=== PATIENT | female | born 1960 | race African-American/Black ===

== ENCOUNTER 2023-03-11 03:57 | Inpatient (IN) | payer OTHER ==
[~2023-03-11] VITALS: Ht 160 cm; Wt 163.3 kg
[2023-03-11] MEDS ORDERED: MORPHINE SULFATE INJ 2 MG/ML DISP.SYRIN ONE ×2 (04:52→08:27)
[2023-03-11] MEDS ORDERED: ONDANSETRON HCL/PF 4 MG/2 ML VIAL ONE (04:52)
[2023-03-11] MEDS ORDERED: FAMOTIDINE/PF INJ 20 MG/2 ML VIAL IV ONE ×2 (04:52→05:00)
[2023-03-11] MEDS ORDERED: ONDANSETRON HCL/PF 4 MG/2 ML VIAL IVP ONE (05:00)
[2023-03-11] MEDS ORDERED: MORPHINE SULFATE INJ 2 MG/ML DISP.SYRIN IV ONE ×2 (05:00→08:30)
[2023-03-11 06:05] LABS: CALCIUM, SERUM 9.4 mg/dL (8.5-10.1); CARBON DIOXIDE 26 mmol/L (21-32); CHLORIDE 103 mmol/L (98-107); CREATININE 1.8 mg/dL (0.6-1.3); GLUCOSE 153 mg/dL (74-106); POTASSIUM 4.8 mmol/L (3.5-5.1); SODIUM SERUM 140 mmol/L (136-145); UREA NITROGEN, BLOOD 20 mg/dL (7-18)
[2023-03-11 06:09] LABS: ALANINE AMINOTRANSFERASE 16 U/L (12-78); ALKALINE PHOSPHATASE 114 U/L (46-116); ASPARTATE AMINOTRANSFERASE 20 U/L (15-37); BILIRUBIN,DIRECT 0.1 mg/dL (0.0-0.2); BILIRUBIN,TOTAL 0.5 mg/dL (0.2-1.0); LIPASE 19 U/L (16-77); TOTAL PROTEIN, SERUM 7.6 g/dL (6.4-8.2)
[2023-03-11 06:12] LABS: BASOPHILS # (AUTO) 0.2 K/uL (0.0-0.2); BASOPHILS % (AUTO) 1.3 % (0.0-2.0); EOSINOPHILS # (AUTO) 0.3 K/uL (0.0-0.7); EOSINOPHILS % (AUTO) 2.4 % (0.0-6.0); HEMATOCRIT 34 % (33-45); HEMOGLOBIN 10.3 g/dL (11.5-14.8); LYMPHOCYTES # (AUTO) 1.9 K/uL (0.8-4.8); LYMPHOCYTES % (AUTO) 15.4 % (20.0-44.0); MEAN CORPUSCULAR HEMOGLOBIN 27 PG (26.0-33.0); MEAN CORPUSCULAR HGB CONC 31 g/dl (31.0-36.0); MEAN CORPUSCULAR VOLUME 89 fL (82-100); MONOCYTES # (AUTO) 1.5 K/uL (0.1-1.30); MONOCYTES % (AUTO) 11.7 % (2.0-12.0); NEUTROPHILS # (AUTO) 8.7 K/uL (1.8-8.9); NEUTROPHILS % (AUTO) 69.2 % (43.0-81.0); PLATELET COUNT (AUTO) 560 K/uL (150-450); RED BLOOD CELL COUNT(AUTO) 3.79 MIL/uL (4.0-5.2); RED CELL DISTRIBUTION WIDTH 15.8 % (11.5-15.0); WHITE BLOOD COUNT (AUTO) 12.6 K/uL (4.3-11.0)
[2023-03-11] MEDS ORDERED: SODI650T PO (09:26)
[2023-03-11] MEDS ORDERED: CARV25TA2 PO (09:26)
[2023-03-11] MEDS ORDERED: IPRA3AMP23 IH (09:26)
[2023-03-11] MEDS ORDERED: NITR0.4T48 SL (09:26)
[2023-03-11] MEDS ORDERED: ALLO100T PO (09:26)
[2023-03-11] MEDS ORDERED: ATOR40TA PO (09:26)
[2023-03-11] MEDS ORDERED: FOLI0.8T2 PO (09:26)
[2023-03-11] MEDS ORDERED: FURO-145 PO (09:26)
[2023-03-11] MEDS ORDERED: DILT-4 PO (09:26)
[2023-03-11] MEDS ORDERED: HYDR-4303 PO (09:26)
[2023-03-11] MEDS ORDERED: DIPH25CA51 PO (09:26)
[2023-03-11] MEDS ORDERED: ACET-868 PO (09:26)
[2023-03-11] MEDS ORDERED: INSU100V7 SQ (09:26)
[2023-03-11] MEDS ORDERED: ASCO-352 PO (09:26)
[2023-03-11] MEDS ORDERED: TRAN650T2 PO (09:26)
[2023-03-11] MEDS ORDERED: INSU100V11 SQ (09:26)
[2023-03-11] MEDS ORDERED: MAGN400O6 PO (09:26)
[2023-03-11] MEDS ORDERED: DULA0.75 SQ (09:26)
[2023-03-11] MEDS ORDERED: ISOS30TA86 PO (09:26)
[2023-03-11] MEDS ORDERED: CLOP75TA15 PO (09:26)
[2023-03-11] MEDS ORDERED: GABA-532 PO (09:26)
[2023-03-11] MEDS ORDERED: BENZ1LOZ12 MM (09:26)
[2023-03-11] MEDS ORDERED: APIX2.5T PO (09:26)
[2023-03-11] MEDS ORDERED: BISA10SU11 RC (09:26)
[2023-03-11] MEDS ORDERED: GUAI5SYR PO (09:26)
[2023-03-11] MEDS ORDERED: HYDR-4076 PO (09:26)
[2023-03-11] MEDS ORDERED: ZINC56.713 TP (09:26)
[2023-03-11] MEDS ORDERED: NA P133E RC (09:26)
[2023-03-11] MEDS ORDERED: FAMO40TA7 PO (09:26)
[2023-03-11] MEDS ORDERED: ARGI1PAC PO (09:26)
[2023-03-11] MEDS ORDERED: MEGE40TA5 PO (09:26)
[2023-03-11] MEDS ORDERED: GENT3.5O4 TOP (09:26)
[2023-03-11] MEDS ORDERED: MAGNESIUM HYDROXIDE 30 ML UDC PO PRN (18:00)
[2023-03-11] MEDS ORDERED: MORPHINE SULFATE INJ 2 MG/ML DISP.SYRIN IV PRN (18:00)
[2023-03-11] MEDS ORDERED: ZOLPIDEM TARTRATE 5 MG TABLET PO PRN (18:00)
[2023-03-11] MEDS ORDERED: Z GUARD REMEDY 4 OZ OINT TP PRN (18:00)
[2023-03-11] MEDS ORDERED: ACETAMINOPHEN 325 MG TABLET PO PRN (18:00)
[2023-03-11] MEDS ORDERED: DEXTROSE 50%-WATER 50 ML DISP.SYRIN IV PRN (18:00)
[2023-03-11] MEDS ORDERED: MAG HYDROX/AL HYDROX/SIMETH 30 ML UDC PO PRN (18:00)
[2023-03-11] MEDS: IV D5/0.45 NACL 1,000 ML IV PRN (18:21)
[2023-03-11] MEDS: HYDROMORPHONE 1 MG/1 ML DISP.SYRIN IV PRN (18:35)
[2023-03-11] MEDS: ONDANSETRON HCL/PF 4 MG/2 ML VIAL IVP PRN (18:40)
[2023-03-11 20:00] VITALS: BP 132/82; TEMP 97.7; O2SAT 92
[2023-03-11] MEDS: BLOOD SUGAR DIAGNOSTIC 1 EACH STRIP IN SCH (22:00)
[2023-03-11] MEDS: MORPHINE SULFATE INJ 2 MG/ML DISP.SYRIN IV PRN (22:44)
[2023-03-12] MEDS: MORPHINE SULFATE INJ 2 MG/ML DISP.SYRIN IV PRN ×5 (03:35→21:34)
[2023-03-12] MEDS: BLOOD SUGAR DIAGNOSTIC 1 EACH STRIP IN SCH ×4 (06:42→21:53)
[2023-03-12 07:00] VITALS: BP 161/83; TEMP 98.1; O2SAT 95
[2023-03-12] MEDS: IV D5/0.45 NACL 1,000 ML IV PRN (08:13)
[2023-03-12] MEDS: PANTOPRAZOLE 40 MG VIAL IV SCH (08:13)
[2023-03-12] MEDS ORDERED: BACITRACIN ZINC OINT (15 GM) 15 GM TUBE TP SCH ×2 (09:00)
[2023-03-12] MEDS: CLOTRIMAZOLE 1% 15 GM TUBE TP SCH ×2 (12:08→17:21)
[2023-03-12 16:00] VITALS: BP 128/60; TEMP 98.8; O2SAT 92
[2023-03-12] MEDS: BACITRACIN ZINC OINT (15 GM) 15 GM TUBE TP SCH (17:22)
[2023-03-12 20:00] VITALS: BP 114/61; TEMP 97.7; O2SAT 94
[2023-03-12] MEDS: INSULIN REGULAR, HUMAN 100 UNIT/ML 3 ML VIAL SQ PRN (21:54)
[2023-03-12 23:30] VITALS: BP 126/74; TEMP 98; O2SAT 98
[2023-03-13] MEDS: IV D5/0.45 NACL 1,000 ML IV PRN ×2 (00:07→15:42)
[2023-03-13] MEDS: MORPHINE SULFATE INJ 2 MG/ML DISP.SYRIN IV PRN ×5 (01:55→23:23)
[2023-03-13 02:00] VITALS: BP 125/70; TEMP 98.5; O2SAT 98
[2023-03-13 05:27] VITALS: BP 123/72; TEMP 98.6; O2SAT 98
[2023-03-13] MEDS: BLOOD SUGAR DIAGNOSTIC 1 EACH STRIP IN SCH ×4 (08:01→22:01)
[2023-03-13] MEDS: PANTOPRAZOLE 40 MG VIAL IV SCH (08:31)
[2023-03-13] MEDS: BACITRACIN ZINC OINT (15 GM) 15 GM TUBE TP SCH ×2 (08:36→16:59)
[2023-03-13] MEDS: CLOTRIMAZOLE 1% 15 GM TUBE TP SCH ×2 (08:37→16:59)
[2023-03-13 11:32] LABS: BASOPHILS # (AUTO) 0.1 K/uL (0.0-0.2); BASOPHILS % (AUTO) 0.7 % (0.0-2.0); EOSINOPHILS # (AUTO) 0.3 K/uL (0.0-0.7); EOSINOPHILS % (AUTO) 2.9 % (0.0-6.0); HEMATOCRIT 30 % (33-45); HEMOGLOBIN 9.1 g/dL (11.5-14.8); LYMPHOCYTES # (AUTO) 2.2 K/uL (0.8-4.8); LYMPHOCYTES % (AUTO) 20.1 % (20.0-44.0); MEAN CORPUSCULAR HEMOGLOBIN 27 PG (26.0-33.0); MEAN CORPUSCULAR HGB CONC 31 g/dl (31.0-36.0); MEAN CORPUSCULAR VOLUME 89 fL (82-100); MONOCYTES # (AUTO) 1.5 K/uL (0.1-1.30); MONOCYTES % (AUTO) 13.9 % (2.0-12.0); NEUTROPHILS # (AUTO) 6.9 K/uL (1.8-8.9); NEUTROPHILS % (AUTO) 62.4 % (43.0-81.0); PLATELET COUNT (AUTO) 469 K/uL (150-450); RED BLOOD CELL COUNT(AUTO) 3.32 MIL/uL (4.0-5.2); RED CELL DISTRIBUTION WIDTH 15.8 % (11.5-15.0); WHITE BLOOD COUNT (AUTO) 11.1 K/uL (4.3-11.0)
[2023-03-13 11:49] LABS: ALBUMIN 2.7 g/dL (3.4-5.0); BILIRUBIN,TOTAL 0.6 mg/dL (0.2-1.0); CALCIUM, SERUM 8.5 mg/dL (8.5-10.1); MAGNESIUM 2.1 mg/dL (1.8-2.4); PHOSPHORUS 3.6 mg/dL (2.5-4.9); TOTAL PROTEIN, SERUM 7.2 g/dL (6.4-8.2)
[2023-03-13 16:14] VITALS: BP_SYST 138; TEMP 98.1; O2SAT 94
[2023-03-13 20:00] VITALS: BP 122/71; TEMP 98.5; O2SAT 95
[2023-03-13] MEDS: INSULIN REGULAR, HUMAN 100 UNIT/ML 3 ML VIAL SQ PRN (22:02)
[2023-03-14] MEDS: MORPHINE SULFATE INJ 2 MG/ML DISP.SYRIN IV PRN ×5 (04:14→21:14)
[2023-03-14] MEDS: IV D5/0.45 NACL 1,000 ML IV PRN ×2 (04:24→22:14)
[2023-03-14] MEDS: BLOOD SUGAR DIAGNOSTIC 1 EACH STRIP IN SCH ×4 (06:50→22:10)
[2023-03-14 08:00] VITALS: BP 150/91; TEMP 97.9; O2SAT 96
[2023-03-14] MEDS: PANTOPRAZOLE 40 MG VIAL IV SCH (08:25)
[2023-03-14] MEDS ORDERED: LEVOFLOXACIN 750 MG /D5W 150ML 750 MG in PREMIX 1 EA IV SCH (10:00)
[2023-03-14] MEDS: BACITRACIN ZINC OINT (15 GM) 15 GM TUBE TP SCH ×2 (11:06→17:09)
[2023-03-14] MEDS: CLOTRIMAZOLE 1% 15 GM TUBE TP SCH ×2 (11:07→17:10)
[2023-03-14] MEDS: ONDANSETRON HCL/PF 4 MG/2 ML VIAL IVP PRN (12:47)
[2023-03-14] MEDS: METRONIDAZOLE 500MG/ NS 100ML 500 MG in PREMIX 1 EA IV SCH ×2 (12:48→21:14)
[2023-03-14 16:00] VITALS: BP 125/83; TEMP 97.7; O2SAT 98
[2023-03-14 20:54] VITALS: BP 99/63; TEMP 97.5; O2SAT 97
[2023-03-15] MEDS: MORPHINE SULFATE INJ 2 MG/ML DISP.SYRIN IV PRN ×6 (01:32→23:19)
[2023-03-15] MEDS: METRONIDAZOLE 500MG/ NS 100ML 500 MG in PREMIX 1 EA IV SCH ×3 (05:06→20:36)
[2023-03-15] MEDS: BLOOD SUGAR DIAGNOSTIC 1 EACH STRIP IN SCH ×4 (06:55→22:07)
[2023-03-15] MEDS: INSULIN REGULAR, HUMAN 100 UNIT/ML 3 ML VIAL SQ PRN ×3 (06:56→22:09)
[2023-03-15 07:06] LABS: PTH, INTACT 33 pg/mL (15-65)
[2023-03-15 07:09] VITALS: BP_SYST 121; BP_SYST 122; BP_SYST 184; BP_DIAS 103; BP_DIAS 67; BP_DIAS 71
[2023-03-15] MEDS: ONDANSETRON HCL/PF 4 MG/2 ML VIAL IVP PRN (07:52)
[2023-03-15 08:02] VITALS: BP 140/69; TEMP 97.5; O2SAT 98
[2023-03-15] MEDS: PANTOPRAZOLE 40 MG VIAL IV SCH (08:31)
[2023-03-15] MEDS: HYDROMORPHONE 1 MG/1 ML DISP.SYRIN IV PRN (08:49)
[2023-03-15] MEDS: BACITRACIN ZINC OINT (15 GM) 15 GM TUBE TP SCH ×2 (09:00→17:00)
[2023-03-15] MEDS: CLOTRIMAZOLE 1% 15 GM TUBE TP SCH ×2 (09:00→17:00)
[2023-03-15] MEDS ORDERED: METOCLOPRAMIDE HCL 10 MG/2 ML VIAL IV PRN (09:30)
[2023-03-15 16:36] VITALS: BP 135/83; TEMP 97.5; O2SAT 98
[2023-03-15] MEDS: IV D5/0.45 NACL 1,000 ML IV PRN (19:20)
[2023-03-15 20:00] VITALS: BP 149/85; TEMP 97.9; O2SAT 98
[2023-03-16] MEDS: METRONIDAZOLE 500MG/ NS 100ML 500 MG in PREMIX 1 EA IV SCH ×3 (05:00→20:55)
[2023-03-16 05:08] LABS: *SPE A/G RATIO 0.7 (0.7-1.7); *SPE ALBUMIN 2.7 g/dL (2.9-4.4); *SPE ALPHA-1-GLOBULIN 0.4 g/dL (0.0-0.4); *SPE ALPHA-2-GLOBULIN 1.1 g/dL (0.4-1.0); *SPE BETA GLOBULIN 1.2 g/dL (0.7-1.3); *SPE GLOBULIN, TOTAL 3.8 g/dL (2.2-3.9); *SPE M-SPIKE Not Observed g/dL (Not Observed); *SPE PROTEIN TOTAL 6.5 g/dL (6.0-8.5); *SPEGAMMA GLOBULIN 1.1 g/dL (0.4-1.8)
[2023-03-16] MEDS: BLOOD SUGAR DIAGNOSTIC 1 EACH STRIP IN SCH ×4 (07:41→21:51)
[2023-03-16] MEDS: INSULIN REGULAR, HUMAN 100 UNIT/ML 3 ML VIAL SQ PRN ×3 (07:42→22:52)
[2023-03-16 08:00] VITALS: BP 149/80; TEMP 97.9; O2SAT 98
[2023-03-16] MEDS: PANTOPRAZOLE 40 MG VIAL IV SCH (09:18)
[2023-03-16] MEDS: BACITRACIN ZINC OINT (15 GM) 15 GM TUBE TP SCH ×3 (09:18→17:38)
[2023-03-16] MEDS: CLOTRIMAZOLE 1% 15 GM TUBE TP SCH ×2 (09:19→17:38)
[2023-03-16] MEDS: MORPHINE SULFATE INJ 2 MG/ML DISP.SYRIN IV PRN ×3 (09:19→20:19)
[2023-03-16] MEDS ORDERED: LEVOFLOXACIN 750 MG /D5W 150ML 750 MG in PREMIX 1 EA IV SCH (10:00)
[2023-03-16] MEDS ORDERED: BISACODYL SUPP (10 MG) 10 MG/SUPP.RECT SUPP.RECT RC PRN (10:00)
[2023-03-16] MEDS: CARVEDILOL 12.5 MG TABLET PO SCH ×3 (10:02→20:55)
[2023-03-16] MEDS ORDERED: ALBUTEROL FS 2.5 MG/0.5 ML VIAL.NEB NEB PRN (10:30)
[2023-03-16] MEDS ORDERED: IPRATROPIUM NEB FS 0.5 MG/2.5 ML AMPUL.NEB IH PRN (10:30)
[2023-03-16] MEDS ORDERED: IPRATROPIUM NEB FS 0.5 MG/2.5 ML AMPUL.NEB NEB PRN (10:30)
[2023-03-16 11:22] LABS: BASOPHILS # (AUTO) 0.1 K/uL (0.0-0.2); BASOPHILS % (AUTO) 1.1 % (0.0-2.0); EOSINOPHILS # (AUTO) 0.2 K/uL (0.0-0.7); EOSINOPHILS % (AUTO) 1.5 % (0.0-6.0); HEMATOCRIT 29 % (33-45); HEMOGLOBIN 9.2 g/dL (11.5-14.8); LYMPHOCYTES # (AUTO) 2.1 K/uL (0.8-4.8); LYMPHOCYTES % (AUTO) 18.5 % (20.0-44.0); MEAN CORPUSCULAR HEMOGLOBIN 28 PG (26.0-33.0); MEAN CORPUSCULAR HGB CONC 32 g/dl (31.0-36.0); MEAN CORPUSCULAR VOLUME 88 fL (82-100); MONOCYTES # (AUTO) 1.5 K/uL (0.1-1.30); MONOCYTES % (AUTO) 13.1 % (2.0-12.0); NEUTROPHILS # (AUTO) 7.6 K/uL (1.8-8.9); NEUTROPHILS % (AUTO) 65.8 % (43.0-81.0); PLATELET COUNT (AUTO) 567 K/uL (150-450); RED BLOOD CELL COUNT(AUTO) 3.31 MIL/uL (4.0-5.2); RED CELL DISTRIBUTION WIDTH 15.5 % (11.5-15.0); WHITE BLOOD COUNT (AUTO) 11.5 K/uL (4.3-11.0)
[2023-03-16 11:23] LABS: CREATININE 2.4 mg/dL (0.6-1.3); MAGNESIUM 2.3 mg/dL (1.8-2.4); PHOSPHORUS 3.5 mg/dL (2.5-4.9); POTASSIUM 4.2 mmol/L (3.5-5.1)
[2023-03-16 11:25] LABS: ALBUMIN 2.8 g/dL (3.4-5.0); BILIRUBIN,DIRECT 0.3 mg/dL (0.0-0.2); BILIRUBIN,TOTAL 0.7 mg/dL (0.2-1.0); TOTAL PROTEIN, SERUM 7.2 g/dL (6.4-8.2)
[2023-03-16] MEDS: GABAPENTIN 100 MG CAPSULE PO SCH ×3 (12:45→17:00)
[2023-03-16] MEDS: hydrALAZINE HCL 25 MG TABLET PO SCH ×3 (13:00→20:56)
[2023-03-16 16:00] VITALS: BP 141/81; TEMP 98.1; O2SAT 100
[2023-03-16] MEDS ORDERED: TRANEXAMIC ACID 650 MG PO SCH (17:00)
[2023-03-16] MEDS: APIXABAN 2.5 MG TABLET PO SCH (17:00)
[2023-03-16 20:00] VITALS: BP 149/81; TEMP 98; O2SAT 98
[2023-03-16] MEDS: ONDANSETRON HCL/PF 4 MG/2 ML VIAL IVP PRN (20:17)
[2023-03-16] MEDS ORDERED: ATORVASTATIN 40 MG TABLET PO SCH (22:00)
[2023-03-16] MEDS: IV D5/0.45 NACL 1,000 ML IV PRN (23:53)
[2023-03-17] MEDS: MORPHINE SULFATE INJ 2 MG/ML DISP.SYRIN IV PRN ×3 (04:34→13:36)
[2023-03-17] MEDS: METRONIDAZOLE 500MG/ NS 100ML 500 MG in PREMIX 1 EA IV SCH ×2 (04:56→13:23)
[2023-03-17] MEDS: BLOOD SUGAR DIAGNOSTIC 1 EACH STRIP IN SCH ×3 (06:12→17:02)
[2023-03-17] MEDS: INSULIN REGULAR, HUMAN 100 UNIT/ML 3 ML VIAL SQ PRN (06:14)
[2023-03-17 08:00] VITALS: BP 151/98; TEMP 97.6; O2SAT 96
[2023-03-17 09:00] VITALS: BP 151/98
[2023-03-17] MEDS: APIXABAN 2.5 MG TABLET PO SCH ×2 (09:00→17:00)
[2023-03-17] MEDS: CARVEDILOL 12.5 MG TABLET PO SCH ×2 (09:00→09:11)
[2023-03-17] MEDS: ISOSORBIDE MONONITRATE (30MG) 30 MG TAB.SR.24H PO SCH ×2 (09:00→09:11)
[2023-03-17] MEDS: FUROSEMIDE 20 MG TABLET PO SCH ×2 (09:00→09:09)
[2023-03-17] MEDS: ALLOPURINOL 100 MG TABLET PO SCH ×2 (09:00→09:10)
[2023-03-17] MEDS: GABAPENTIN 100 MG CAPSULE PO SCH ×4 (09:00→17:00)
[2023-03-17] MEDS: ASCORBIC ACID 500 MG TABLET PO SCH ×2 (09:00→09:10)
[2023-03-17] MEDS: CLOTRIMAZOLE 1% 15 GM TUBE TP SCH ×2 (09:00→17:00)
[2023-03-17] MEDS: BACITRACIN ZINC OINT (15 GM) 15 GM TUBE TP SCH ×2 (09:00→17:00)
[2023-03-17] MEDS: DILTIAZEM HCL CD 240 MG PO SCH ×2 (09:00→09:12)
[2023-03-17] MEDS: hydrALAZINE HCL 25 MG TABLET PO SCH ×4 (09:00→17:00)
[2023-03-17] MEDS: VIT B CMPLX 3/FA/VIT C/BIOTIN 1 TAB TABLET PO SCH ×2 (09:00→09:09)
[2023-03-17] MEDS: CLOPIDOGREL BISULFATE 75 MG TABLET PO SCH ×2 (09:00→09:10)
[2023-03-17] MEDS: PANTOPRAZOLE 40 MG TABLET.DR PO SCH ×2 (09:00→09:10)
[2023-03-17] MEDS ORDERED: METR500T PO (10:32)
[2023-03-17 11:42] LABS: BASOPHILS # (AUTO) 0.1 K/uL (0.0-0.2); BASOPHILS % (AUTO) 0.7 % (0.0-2.0); EOSINOPHILS # (AUTO) 0.2 K/uL (0.0-0.7); EOSINOPHILS % (AUTO) 1.6 % (0.0-6.0); HEMATOCRIT 34 % (33-45); HEMOGLOBIN 10.3 g/dL (11.5-14.8); LYMPHOCYTES # (AUTO) 2.4 K/uL (0.8-4.8); LYMPHOCYTES % (AUTO) 18.9 % (20.0-44.0); MEAN CORPUSCULAR HEMOGLOBIN 28 PG (26.0-33.0); MEAN CORPUSCULAR HGB CONC 31 g/dl (31.0-36.0); MEAN CORPUSCULAR VOLUME 91 fL (82-100); MONOCYTES # (AUTO) 2.1 K/uL (0.1-1.30); MONOCYTES % (AUTO) 16.3 % (2.0-12.0); NEUTROPHILS # (AUTO) 7.9 K/uL (1.8-8.9); NEUTROPHILS % (AUTO) 62.5 % (43.0-81.0); PLATELET COUNT (AUTO) 588 K/uL (150-450); RED BLOOD CELL COUNT(AUTO) 3.73 MIL/uL (4.0-5.2); RED CELL DISTRIBUTION WIDTH 16.1 % (11.5-15.0); WHITE BLOOD COUNT (AUTO) 12.7 K/uL (4.3-11.0)
[2023-03-17 11:55] LABS: ALBUMIN 2.8 g/dL (3.4-5.0); BILIRUBIN,TOTAL 0.6 mg/dL (0.2-1.0); CALCIUM, SERUM 8.7 mg/dL (8.5-10.1); CREATININE 2.6 mg/dL (0.6-1.3); MAGNESIUM 2.5 mg/dL (1.8-2.4); PHOSPHORUS 3.3 mg/dL (2.5-4.9); POTASSIUM 4.2 mmol/L (3.5-5.1); TOTAL PROTEIN, SERUM 7.4 g/dL (6.4-8.2)
[2023-03-17 13:05] LABS: EOSINOPHILS % (MANUAL) 1 % (0-4); LYMPHOCYTES % (MANUAL) 23 % (16-48); MONOCYTES % (MANUAL) 15 % (0-11.0); NEUTROPHILS % (MANUAL) 61 (42-76); PLATELET ESTIMATE INCREASED
[2023-03-17] MEDS: HYDROMORPHONE 1 MG/1 ML DISP.SYRIN IV PRN (16:52)
== END 2023-03-17 18:15 | DRG 48 ==
LOC: ER 04:14 → MED 11:57
PROVIDERS: ADMIT Nurse Practitioner Acute Care; ATTEND Nurse Practitioner Family
PROC: 05HD33Z Insertion of Infusion Device into Right Cephalic Vein, Percutaneous Approach (ICD-10-PCS; principal; 2023-03-12)
DX: E11.43 Type 2 diabetes mellitus with diabetic autonomic (poly)neuropathy (principal); N17.0 Acute kidney failure with tubular necrosis; K80.00 Calculus of gallbladder with acute cholecystitis without obstruction; R18.8 Other ascites; Z68.44 Body mass index [BMI] 60.0-69.9, adult; S81.802A Unspecified open wound, left lower leg, initial encounter; J90 Pleural effusion, not elsewhere classified; E11.22 Type 2 diabetes mellitus with diabetic chronic kidney disease; D64.9 Anemia, unspecified; E11.51 Type 2 diabetes mellitus with diabetic peripheral angiopathy without gangrene; E11.42 Type 2 diabetes mellitus with diabetic polyneuropathy; D75.839 Thrombocytosis, unspecified; I48.91 Unspecified atrial fibrillation; K31.84 Gastroparesis; N18.9 Chronic kidney disease, unspecified; E66.01 Morbid (severe) obesity due to excess calories; N20.0 Calculus of kidney; Z20.822 Contact with and (suspected) exposure to COVID-19; M10.9 Gout, unspecified; Z87.19 Personal history of other diseases of the digestive system; F43.10 Post-traumatic stress disorder, unspecified; Z96.0 Presence of urogenital implants; Z88.0 Allergy status to penicillin; Z88.6 Allergy status to analgesic agent; Z79.899 Other long term (current) drug therapy; Z88.5 Allergy status to narcotic agent; Z88.8 Allergy status to other drugs, medicaments and biological substances; M89.8X9 Other specified disorders of bone, unspecified site; K59.00 Constipation, unspecified; Z79.02 Long term (current) use of antithrombotics/antiplatelets; Z79.51 Long term (current) use of inhaled steroids; Z79.4 Long term (current) use of insulin; Z79.01 Long term (current) use of anticoagulants; Z79.85 Long-term (current) use of injectable non-insulin antidiabetic drugs; I87.2 Venous insufficiency (chronic) (peripheral); I89.0 Lymphedema, not elsewhere classified; I51.7 Cardiomegaly; K75.81 Nonalcoholic steatohepatitis (NASH); X58.XXXA Exposure to other specified factors, initial encounter; Y92.9 Unspecified place or not applicable; K57.30 Diverticulosis of large intestine without perforation or abscess without bleeding
CPT/HCPCS: 36415; 71045-TC; 76705-TC; 76770-TC; 80048-TC; 80053-TC; 80076-TC; 82550-TC; 82962-TC; 83690-TC; 83735-TC; 83880; 83970; 84100-TC; 84155; 84165; 84484-TC; 85025-TC; A4216; A4223; A6253; C9113; G0378; J1170; J1815; J1956; J2270; J2405; J3490; J7030; J7042

== ENCOUNTER 2023-03-27 13:05 | Inpatient (IN) | payer OTHER ==
[~2023-03-27] VITALS: Ht 162.6 cm; Wt 146.5 kg
[~2023-03-27 13:05] MED LIST: ACET-868 PO; ALLO100T PO; APIX2.5T PO; ARGI1PAC PO; ASCO-352 PO; ATOR40TA PO; BENZ1LOZ12 MM; BISA10SU11 RC; CARV25TA2 PO; CLOP75TA15 PO; DILT-4 PO; DIPH25CA51 PO; DULA0.75 SQ; FAMO40TA7 PO; FOLI0.8T2 PO; FURO-145 PO; GABA-532 PO; GENT3.5O4 TOP; GUAI5SYR PO; HYDR-4076 PO; HYDR-4303 PO; INSU100V11 SQ; INSU100V7 SQ; IPRA3AMP23 IH; ISOS30TA86 PO; MAGN400O6 PO; MEGE40TA5 PO; METR500T PO; NA P133E RC; NITR0.4T48 SL; SODI650T PO; TRAN650T2 PO; ZINC56.713 TP
[2023-03-27] MEDS ORDERED: METO-295 PO (13:50)
[2023-03-27] MEDS ORDERED: BISA5TAB10 PO (13:50)
[2023-03-27] MEDS ORDERED: DOCU-141 PO (13:50)
[2023-03-27] MEDS ORDERED: PANT40TA2 PO (13:50)
[2023-03-27] MEDS ORDERED: LEVO500T90 PO (13:50)
[2023-03-27] MEDS ORDERED: POLY17PO4 PO (13:50)
[2023-03-27] MEDS ORDERED: GLUC1KIT IM (13:50)
[2023-03-27 14:17] LABS: BASOPHILS # (AUTO) 0.1 K/uL (0.0-0.2); BASOPHILS % (AUTO) 0.8 % (0.0-2.0); EOSINOPHILS # (AUTO) 0.1 K/uL (0.0-0.7); EOSINOPHILS % (AUTO) 0.7 % (0.0-6.0); HEMATOCRIT 32 % (33-45); HEMOGLOBIN 9.9 g/dL (11.5-14.8); LYMPHOCYTES # (AUTO) 1.8 K/uL (0.8-4.8); LYMPHOCYTES % (AUTO) 16.2 % (20.0-44.0); MEAN CORPUSCULAR HEMOGLOBIN 27 PG (26.0-33.0); MEAN CORPUSCULAR HGB CONC 31 g/dl (31.0-36.0); MEAN CORPUSCULAR VOLUME 87 fL (82-100); MONOCYTES % (AUTO) 18.1 % (2.0-12.0); NEUTROPHILS # (AUTO) 7.2 K/uL (1.8-8.9); NEUTROPHILS % (AUTO) 64.2 % (43.0-81.0); PLATELET COUNT (AUTO) 614 K/uL (150-450); RED BLOOD CELL COUNT(AUTO) 3.68 MIL/uL (4.0-5.2); RED CELL DISTRIBUTION WIDTH 16.5 % (11.5-15.0); WHITE BLOOD COUNT (AUTO) 11.2 K/uL (4.3-11.0)
[2023-03-27 14:31] LABS: ALANINE AMINOTRANSFERASE 17 U/L (12-78); ALBUMIN 2.3 g/dL (3.4-5.0); ALKALINE PHOSPHATASE 247 U/L (46-116); ASPARTATE AMINOTRANSFERASE 24 U/L (15-37); BILIRUBIN,DIRECT 0.3 mg/dL (0.0-0.2); BILIRUBIN,TOTAL 0.5 mg/dL (0.2-1.0); CALCIUM, SERUM 8.8 mg/dL (8.5-10.1); CARBON DIOXIDE 20 mmol/L (21-32); CHLORIDE 99 mmol/L (98-107); CREATININE 4.5 mg/dL (0.6-1.3); GLUCOSE 162 mg/dL (74-106); LIPASE 45 U/L (16-77); POTASSIUM 5.4 mmol/L (3.5-5.1); SODIUM SERUM 130 mmol/L (136-145); TOTAL PROTEIN, SERUM 7.7 g/dL (6.4-8.2); UREA NITROGEN, BLOOD 66 mg/dL (7-18)
[2023-03-27 14:48] LABS: APPEARANCE,URINE BLOODY (CLEAR); COLOR,URINE RED (YELLOW)
[2023-03-27] MEDS ORDERED: MORPHINE SULFATE INJ 2 MG/ML DISP.SYRIN IV ONE (15:00)
[2023-03-27] MEDS ORDERED: ONDANSETRON HCL/PF 4 MG/2 ML VIAL IVP ONE (15:00)
[2023-03-27] MEDS ORDERED: ONDANSETRON HCL/PF 4 MG/2 ML VIAL ONE ×2 (15:06→18:47)
[2023-03-27] MEDS ORDERED: MORPHINE SULFATE INJ 4 MG/ML DISP.SYRIN ONE (15:07)
[2023-03-27 15:46] LABS: BACTERIA,URINE 3+ /HPF (None Seen); RBC,URINE TOO NUMEROUS TO COUN /HPF (0-2); SQUAMOUS EPITHELIAL CELL,UR 0-2 /HPF (None Seen); WBC,URINE TOO NUMEROUS TO COUN /HPF (0-3)
[2023-03-27] MEDS ORDERED: CEFTRIAXONE 1GM BAG (ER ONLY) 1 GM/50 ML PIGGYBACK IV ONE (16:00)
[2023-03-27] MEDS ORDERED: IV NS 0.9% 1,000 ML BAG IV ONE (16:00)
[2023-03-27 16:05] LABS: ANISOCYTOSIS 1+; EOSINOPHILS % (MANUAL) 2 % (0-4); LYMPHOCYTES % (MANUAL) 19 % (16-48); MONOCYTES % (MANUAL) 9 % (0-11.0); NEUTROPHILS % (MANUAL) 70 (42-76); PLATELET ESTIMATE INCREASED
[2023-03-27 16:06] LABS: STOMATOCYTES FEW; TEAR DROP CELLS FEW
[2023-03-27] MEDS ORDERED: CEFTRIAXONE 1GM BAG (ER ONLY) 50 ML IV ONE (16:54)
[2023-03-27] MEDS ORDERED: ONDANSETRON HCL/PF - ER 4 MG/2 ML VIAL IV ONE (18:00)
[2023-03-27] MEDS ORDERED: DEXTROSE 50%-WATER 50 ML DISP.SYRIN IV PRN (19:00)
[2023-03-27] MEDS ORDERED: MAGNESIUM HYDROXIDE 30 ML UDC PO PRN (19:00)
[2023-03-27] MEDS ORDERED: hydrALAZINE HCL IV 20 MG VIAL IV PRN (19:00)
[2023-03-27] MEDS ORDERED: diphenhydrAMINE HCL 25 MG CAPSULE PO PRN (19:00)
[2023-03-27] MEDS ORDERED: ALBUTEROL FS 2.5 MG/0.5 ML VIAL.NEB NEB PRN (19:00)
[2023-03-27 20:00] VITALS: BP 127/98; TEMP 99.3; O2SAT 99
[2023-03-27] MEDS: CEFEPIME 1 GM in IV D5W 50 ML IV SCH (20:36)
[2023-03-27] MEDS: MORPHINE SULFATE INJ 2 MG/ML DISP.SYRIN IV PRN (21:09)
[2023-03-27] MEDS: hydrALAZINE HCL 25 MG TABLET PO SCH (22:26)
[2023-03-27] MEDS: ATORVASTATIN 40 MG TABLET PO SCH (22:26)
[2023-03-27] MEDS: BLOOD SUGAR DIAGNOSTIC 1 EACH STRIP VI SCH (22:28)
[2023-03-27] MEDS: *INSULIN REGULAR(HUMULIN R)HUM 100 UNIT/ML VIAL SQ PRN (22:58)
[2023-03-28] VITALS (12 sets, daily range): BP systolic 107–129; BP diastolic 75–92; TEMP 98.1–99.5; O2SAT 94–99
[2023-03-28] MEDS ORDERED: IPRATROPIUM/ALBUTEROL INHALER IH SCH
[2023-03-28] MEDS: MORPHINE SULFATE INJ 2 MG/ML DISP.SYRIN IV PRN ×5 (03:03→20:45)
[2023-03-28] MEDS: PANTOPRAZOLE 40 MG TABLET.DR PO SCH (07:30)
[2023-03-28] MEDS: SODIUM BICARBONATE 650 MG TABLET PO SCH ×4 (08:00→17:25)
[2023-03-28] MEDS: BLOOD SUGAR DIAGNOSTIC 1 EACH STRIP VI SCH ×4 (08:09→21:15)
[2023-03-28] MEDS: INSULIN REGULAR, HUMAN 100 UNIT/ML 3 ML VIAL SQ PRN ×3 (08:12→18:12)
[2023-03-28] MEDS: ALBUTEROL FS 2.5 MG/0.5 ML VIAL.NEB NEB SCH ×3 (08:30→19:51)
[2023-03-28] MEDS: IPRATROPIUM NEB FS 0.5 MG/2.5 ML AMPUL.NEB NEB SCH ×3 (08:30→19:50)
[2023-03-28] MEDS: APIXABAN 2.5 MG TABLET PO SCH ×2 (09:00→17:00)
[2023-03-28] MEDS: CARVEDILOL 12.5 MG TABLET PO SCH ×2 (09:00→17:25)
[2023-03-28] MEDS: DOCUSATE SODIUM 100 MG CAPSULE PO SCH ×2 (09:00→17:24)
[2023-03-28] MEDS: GABAPENTIN 100 MG CAPSULE PO SCH ×3 (09:00→17:24)
[2023-03-28] MEDS: FAMOTIDINE (20 MG) 20 MG TABLET PO SCH (09:00)
[2023-03-28] MEDS: ASCORBIC ACID 500 MG TABLET PO SCH (09:00)
[2023-03-28] MEDS: ALLOPURINOL 100 MG TABLET PO SCH (09:00)
[2023-03-28] MEDS ORDERED: FUROSEMIDE 20 MG TABLET PO SCH (09:00)
[2023-03-28] MEDS: DILTIAZEM HCL CD 240 MG PO SCH (09:00)
[2023-03-28] MEDS: hydrALAZINE HCL 25 MG TABLET PO SCH ×5 (09:00→20:46)
[2023-03-28] MEDS ORDERED: FAMOTIDINE 40 MG TABLET PO SCH (09:00)
[2023-03-28 13:45] LABS: APPEARANCE,URINE TURBID (CLEAR); BILIRUBIN,URINE 2+ (NEGATIVE); BLOOD, URINE 3+ Ery/uL (NEGATIVE); COLOR,URINE AMBER (YELLOW); KETONES,URINE TRACE mg/dL (NEGATIVE); LEUKOCYTE ESTERASE ,URINE 2+ (NEGATIVE); NITRITE, URINE POSITIVE (NEGATIVE); PROTEIN,URINE 3+ mg/dl (NEGATIVE); UGLUCOSE NEGATIVE (NEGATIVE)
[2023-03-28 14:01] LABS: RBC,URINE TOO NUMEROUS TO COUN /HPF (0-2); WBC,URINE TOO NUMEROUS TO COUN /HPF (0-3)
[2023-03-28 14:02] LABS: ADD URINE CULTURE YES; BACTERIA,URINE Moderate /HPF (None Seen); SQUAMOUS EPITHELIAL CELL,UR Moderate /HPF (None Seen)
[2023-03-28 14:05] LABS: CREATININE, URINE 163.7 MG/DL (30.0-125.0); URINE TOTAL PROTEIN 344.1 mg/dL (0-11.9)
[2023-03-28 15:46] LABS: EOSINOPHIL,URINE None Seen
[2023-03-28] MEDS: CEFEPIME 1 GM in IV D5W 50 ML IV SCH (20:45)
[2023-03-28] MEDS: ATORVASTATIN 40 MG TABLET PO SCH (20:46)
[2023-03-29] VITALS (9 sets, daily range): BP systolic 107–127; BP diastolic 57–86; TEMP 97.3–99.2; O2SAT 94–100
[2023-03-29] MEDS: IPRATROPIUM NEB FS 0.5 MG/2.5 ML AMPUL.NEB NEB SCH ×4 (01:10→19:37)
[2023-03-29] MEDS: ALBUTEROL FS 2.5 MG/0.5 ML VIAL.NEB NEB SCH ×4 (01:10→19:37)
[2023-03-29] MEDS: MORPHINE SULFATE INJ 2 MG/ML DISP.SYRIN IV PRN ×4 (04:15→18:58)
[2023-03-29 07:51] LABS: BASOPHILS % (AUTO) 0.4 % (0.0-2.0); EOSINOPHILS # (AUTO) 0.2 K/uL (0.0-0.7); EOSINOPHILS % (AUTO) 1.9 % (0.0-6.0); HEMATOCRIT 29 % (33-45); LYMPHOCYTES # (AUTO) 2.3 K/uL (0.8-4.8); LYMPHOCYTES % (AUTO) 19.9 % (20.0-44.0); MEAN CORPUSCULAR HEMOGLOBIN 27 PG (26.0-33.0); MEAN CORPUSCULAR HGB CONC 31 g/dl (31.0-36.0); MEAN CORPUSCULAR VOLUME 87 fL (82-100); MONOCYTES # (AUTO) 2.7 K/uL (0.1-1.30); MONOCYTES % (AUTO) 23.1 % (2.0-12.0); NEUTROPHILS # (AUTO) 6.4 K/uL (1.8-8.9); NEUTROPHILS % (AUTO) 54.7 % (43.0-81.0); PLATELET COUNT (AUTO) 523 K/uL (150-450); RED BLOOD CELL COUNT(AUTO) 3.34 MIL/uL (4.0-5.2); WHITE BLOOD COUNT (AUTO) 11.8 K/uL (4.3-11.0)
[2023-03-29 08:08] LABS: BILIRUBIN,TOTAL 0.4 mg/dL (0.2-1.0); CALCIUM, SERUM 8.5 mg/dL (8.5-10.1); CREATININE 5.4 mg/dL (0.6-1.3); MAGNESIUM 2.8 mg/dL (1.8-2.4); POTASSIUM 5.7 mmol/L (3.5-5.1); TOTAL PROTEIN, SERUM 7.2 g/dL (6.4-8.2)
[2023-03-29 08:18] LABS: INR 1.24 (0.91-1.10)
[2023-03-29] MEDS: APIXABAN 2.5 MG TABLET PO SCH ×2 (08:29→16:28)
[2023-03-29] MEDS: GABAPENTIN 100 MG CAPSULE PO SCH ×3 (08:30→16:32)
[2023-03-29] MEDS: DOCUSATE SODIUM 100 MG CAPSULE PO SCH ×2 (08:30→16:28)
[2023-03-29] MEDS: ALLOPURINOL 100 MG TABLET PO SCH (08:30)
[2023-03-29] MEDS: FAMOTIDINE (20 MG) 20 MG TABLET PO SCH (08:31)
[2023-03-29] MEDS: PANTOPRAZOLE 40 MG TABLET.DR PO SCH (08:31)
[2023-03-29] MEDS: hydrALAZINE HCL 25 MG TABLET PO SCH ×4 (08:32→21:36)
[2023-03-29] MEDS: CARVEDILOL 12.5 MG TABLET PO SCH ×2 (08:32→16:33)
[2023-03-29] MEDS: SODIUM BICARBONATE 650 MG TABLET PO SCH ×3 (08:35→17:23)
[2023-03-29] MEDS: DILTIAZEM HCL CD 240 MG PO SCH (08:35)
[2023-03-29] MEDS: ASCORBIC ACID 500 MG TABLET PO SCH (08:37)
[2023-03-29] MEDS: BLOOD SUGAR DIAGNOSTIC 1 EACH STRIP VI SCH ×4 (09:22→21:37)
[2023-03-29] MEDS: INSULIN REGULAR, HUMAN 100 UNIT/ML 3 ML VIAL SQ PRN ×3 (09:22→17:22)
[2023-03-29] MEDS: CEFEPIME 1 GM in IV D5W 50 ML IV SCH (20:26)
[2023-03-29] MEDS: ATORVASTATIN 40 MG TABLET PO SCH (21:36)
[2023-03-29] MEDS: *INSULIN REGULAR(HUMULIN R)HUM 100 UNIT/ML VIAL SQ PRN (21:37)
[2023-03-29 23:34] LABS: CALCIUM, SERUM 8.4 mg/dL (8.5-10.1); CREATININE 5.9 mg/dL (0.6-1.3); POTASSIUM 5.5 mmol/L (3.5-5.1)
[2023-03-30] VITALS: BP 108/88; TEMP 97.9; O2SAT 99
[2023-03-30] MEDS: MORPHINE SULFATE INJ 2 MG/ML DISP.SYRIN IV PRN ×4 (01:22→20:16)
[2023-03-30] MEDS: IPRATROPIUM NEB FS 0.5 MG/2.5 ML AMPUL.NEB NEB SCH ×4 (01:30→19:30)
[2023-03-30] MEDS: ALBUTEROL FS 2.5 MG/0.5 ML VIAL.NEB NEB SCH ×4 (01:30→19:30)
[2023-03-30 04:00] VITALS: BP 120/82; TEMP 97.8; O2SAT 99
[2023-03-30 06:07] LABS: PTH, INTACT 53 pg/mL (15-65)
[2023-03-30] MEDS ORDERED: ALBUMIN 25% 100 ML IV ONE (06:22)
[2023-03-30] MEDS: ALBUMIN 25% 25 GM in PREMIX 1 EA IV SCH ×3 (06:31→18:42)
[2023-03-30] MEDS: BLOOD SUGAR DIAGNOSTIC 1 EACH STRIP VI SCH ×4 (07:30→22:00)
[2023-03-30] MEDS: PANTOPRAZOLE 40 MG TABLET.DR PO SCH (07:30)
[2023-03-30 08:00] VITALS: BP 128/88; TEMP 97.8; O2SAT 99
[2023-03-30] MEDS: SODIUM BICARBONATE 650 MG TABLET PO SCH ×3 (08:00→17:50)
[2023-03-30 08:07] LABS: *SPE A/G RATIO 0.6 (0.7-1.7); *SPE ALBUMIN 2.2 g/dL (2.9-4.4); *SPE ALPHA-1-GLOBULIN 0.4 g/dL (0.0-0.4); *SPE ALPHA-2-GLOBULIN 1.1 g/dL (0.4-1.0); *SPE BETA GLOBULIN 1.1 g/dL (0.7-1.3); *SPE M-SPIKE Not Observed g/dL (Not Observed); *SPE PROTEIN TOTAL 6.2 g/dL (6.0-8.5); *SPEGAMMA GLOBULIN 1.3 g/dL (0.4-1.8)
[2023-03-30] MEDS: DOCUSATE SODIUM 100 MG CAPSULE PO SCH ×2 (09:00→17:49)
[2023-03-30] MEDS: CARVEDILOL 12.5 MG TABLET PO SCH ×2 (09:00→17:51)
[2023-03-30] MEDS: ASCORBIC ACID 500 MG TABLET PO SCH (09:00)
[2023-03-30] MEDS: GABAPENTIN 100 MG CAPSULE PO SCH ×3 (09:00→17:50)
[2023-03-30] MEDS: APIXABAN 2.5 MG TABLET PO SCH ×2 (09:00→17:00)
[2023-03-30] MEDS: FAMOTIDINE (20 MG) 20 MG TABLET PO SCH (09:00)
[2023-03-30] MEDS: DILTIAZEM HCL CD 240 MG PO SCH (09:00)
[2023-03-30] MEDS: hydrALAZINE HCL 25 MG TABLET PO SCH ×4 (09:00→21:00)
[2023-03-30] MEDS: ALLOPURINOL 100 MG TABLET PO SCH (09:00)
[2023-03-30] MEDS: INSULIN REGULAR, HUMAN 100 UNIT/ML 3 ML VIAL SQ PRN ×3 (09:03→23:54)
[2023-03-30] MEDS: CLOTRIMAZOLE 1% 15 GM TUBE TP SCH ×2 (09:40→17:53)
[2023-03-30 12:00] VITALS: BP 133/56; TEMP 98; O2SAT 99
[2023-03-30 16:00] VITALS: BP 133/64; TEMP 98.8; O2SAT 100
[2023-03-30 16:19] LABS: PROTEIN, BODY FLUID 5.1 G/DL
[2023-03-30 17:16] LABS: APPEARANCE,SPUN,BODY FLUID CLEAR (CLEAR)
[2023-03-30 17:17] LABS: TOTAL VOLUME,BODY FLUID 4550 mL; WBC, BODY FLUID 306 /cu. mm. (0-200)
[2023-03-30 18:26] LABS: MACROPHAGES, BODY FLUID 20; MONOCYTES,BODY FLUID 32 %; POLYNUCLEAR, BODY FLUID 8 % (0-25)
[2023-03-30 18:34] LABS: BASOPHILS % (AUTO) 0.3 % (0.0-2.0); EOSINOPHILS # (AUTO) 0.3 K/uL (0.0-0.7); EOSINOPHILS % (AUTO) 2.4 % (0.0-6.0); HEMATOCRIT 26 % (33-45); LYMPHOCYTES # (AUTO) 1.7 K/uL (0.8-4.8); MEAN CORPUSCULAR HEMOGLOBIN 27 PG (26.0-33.0); MEAN CORPUSCULAR HGB CONC 31 g/dl (31.0-36.0); MEAN CORPUSCULAR VOLUME 87 fL (82-100); MONOCYTES # (AUTO) 1.9 K/uL (0.1-1.30); MONOCYTES % (AUTO) 15.2 % (2.0-12.0); NEUTROPHILS # (AUTO) 8.8 K/uL (1.8-8.9); NEUTROPHILS % (AUTO) 69.1 % (43.0-81.0); PLATELET COUNT (AUTO) 440 K/uL (150-450); RED BLOOD CELL COUNT(AUTO) 3.01 MIL/uL (4.0-5.2); RED CELL DISTRIBUTION WIDTH 16.2 % (11.5-15.0); WHITE BLOOD COUNT (AUTO) 12.8 K/uL (4.3-11.0)
[2023-03-30 20:00] VITALS: BP 102/67; TEMP 97.7; O2SAT 100
[2023-03-30] MEDS: CEFEPIME 1 GM in IV D5W 50 ML IV SCH (20:17)
[2023-03-30] MEDS: ONDANSETRON HCL/PF 4 MG/2 ML VIAL IVP PRN (20:32)
[2023-03-30] MEDS: ATORVASTATIN 40 MG TABLET PO SCH ×2 (21:54→22:34)
[2023-03-31] VITALS: BP 118/60; TEMP 97
[2023-03-31] MEDS: ONDANSETRON HCL/PF 4 MG/2 ML VIAL IVP PRN ×3 (00:34→18:09)
[2023-03-31] MEDS: ALBUMIN 25% 25 GM in PREMIX 1 EA IV SCH ×2 (00:37→00:41)
[2023-03-31] MEDS: IPRATROPIUM NEB FS 0.5 MG/2.5 ML AMPUL.NEB NEB SCH ×5 (01:30→20:41)
[2023-03-31] MEDS: ALBUTEROL FS 2.5 MG/0.5 ML VIAL.NEB NEB SCH ×5 (01:30→20:41)
[2023-03-31 04:00] VITALS: BP 115/57; TEMP 98.1; O2SAT 100
[2023-03-31] MEDS: MORPHINE SULFATE INJ 2 MG/ML DISP.SYRIN IV PRN ×4 (06:04→20:33)
[2023-03-31] MEDS: BLOOD SUGAR DIAGNOSTIC 1 EACH STRIP VI SCH ×4 (07:30→22:18)
[2023-03-31 07:39] LABS: BASOPHILS % (AUTO) 0.2 % (0.0-2.0); EOSINOPHILS # (AUTO) 0.4 K/uL (0.0-0.7); EOSINOPHILS % (AUTO) 2.8 % (0.0-6.0); HEMATOCRIT 27 % (33-45); HEMOGLOBIN 8.2 g/dL (11.5-14.8); LYMPHOCYTES # (AUTO) 1.7 K/uL (0.8-4.8); MEAN CORPUSCULAR HEMOGLOBIN 27 PG (26.0-33.0); MEAN CORPUSCULAR HGB CONC 31 g/dl (31.0-36.0); MEAN CORPUSCULAR VOLUME 88 fL (82-100); MONOCYTES # (AUTO) 2.2 K/uL (0.1-1.30); MONOCYTES % (AUTO) 16.5 % (2.0-12.0); NEUTROPHILS # (AUTO) 9.1 K/uL (1.8-8.9); NEUTROPHILS % (AUTO) 67.5 % (43.0-81.0); PLATELET COUNT (AUTO) 444 K/uL (150-450); RED BLOOD CELL COUNT(AUTO) 3.05 MIL/uL (4.0-5.2); RED CELL DISTRIBUTION WIDTH 16.3 % (11.5-15.0); WHITE BLOOD COUNT (AUTO) 13.4 K/uL (4.3-11.0)
[2023-03-31 07:57] LABS: BILIRUBIN,DIRECT 0.3 mg/dL (0.0-0.2); BILIRUBIN,TOTAL 0.5 mg/dL (0.2-1.0); CALCIUM, SERUM 8.6 mg/dL (8.5-10.1); MAGNESIUM 2.8 mg/dL (1.8-2.4); PHOSPHORUS 5.5 mg/dL (2.5-4.9); POTASSIUM 4.6 mmol/L (3.5-5.1); TOTAL PROTEIN, SERUM 6.6 g/dL (6.4-8.2)
[2023-03-31 08:00] VITALS: BP 125/73; TEMP 98.1; O2SAT 100
[2023-03-31] MEDS: SODIUM BICARBONATE 650 MG TABLET PO SCH ×3 (09:18→17:45)
[2023-03-31] MEDS: GABAPENTIN 100 MG CAPSULE PO SCH ×3 (09:18→17:45)
[2023-03-31] MEDS: DOCUSATE SODIUM 100 MG CAPSULE PO SCH ×2 (09:18→17:45)
[2023-03-31] MEDS: PANTOPRAZOLE 40 MG TABLET.DR PO SCH (09:18)
[2023-03-31] MEDS: ASCORBIC ACID 500 MG TABLET PO SCH (09:18)
[2023-03-31] MEDS: ALLOPURINOL 100 MG TABLET PO SCH (09:18)
[2023-03-31] MEDS: APIXABAN 2.5 MG TABLET PO SCH ×2 (09:24→17:48)
[2023-03-31] MEDS: FAMOTIDINE (20 MG) 20 MG TABLET PO SCH (09:24)
[2023-03-31] MEDS: hydrALAZINE HCL 25 MG TABLET PO SCH ×4 (09:25→20:20)
[2023-03-31] MEDS: CARVEDILOL 12.5 MG TABLET PO SCH ×2 (09:25→17:46)
[2023-03-31] MEDS: DILTIAZEM HCL CD 240 MG PO SCH (09:25)
[2023-03-31] MEDS: INSULIN REGULAR, HUMAN 100 UNIT/ML 3 ML VIAL SQ PRN ×4 (09:26→21:51)
[2023-03-31] MEDS: CLOTRIMAZOLE 1% 15 GM TUBE TP SCH ×2 (09:27→17:46)
[2023-03-31 12:00] VITALS: BP 126/77; TEMP 98.1; O2SAT 100
[2023-03-31 16:00] VITALS: BP 112/64; TEMP 98.2; O2SAT 100
[2023-03-31 20:00] VITALS: BP 127/62; TEMP 97.7; O2SAT 100
[2023-03-31] MEDS: CEFEPIME 1 GM in IV D5W 50 ML IV SCH (20:08)
[2023-04-01] VITALS (7 sets, daily range): BP systolic 98–121; BP diastolic 57–72; TEMP 97.3–97.9; O2SAT 95–100
[2023-04-01] MEDS: MORPHINE SULFATE INJ 2 MG/ML DISP.SYRIN IV PRN ×4 (00:44→15:22)
[2023-04-01] MEDS: IPRATROPIUM NEB FS 0.5 MG/2.5 ML AMPUL.NEB NEB SCH ×4 (01:30→20:15)
[2023-04-01] MEDS: ALBUTEROL FS 2.5 MG/0.5 ML VIAL.NEB NEB SCH ×4 (01:30→20:15)
[2023-04-01 08:07] LABS: COMPLEMENT C3, SERUM 154 mg/dL (82-167); COMPLEMENT C4, SERUM 50 mg/dL (12-38)
[2023-04-01 08:07] LABS: HEPATITIS B SURFACE AB Non Reactive (.)
[2023-04-01 08:25] LABS: BASOPHILS % (AUTO) 0.2 % (0.0-2.0); EOSINOPHILS # (AUTO) 0.2 K/uL (0.0-0.7); EOSINOPHILS % (AUTO) 1.3 % (0.0-6.0); HEMATOCRIT 29 % (33-45); LYMPHOCYTES # (AUTO) 2.2 K/uL (0.8-4.8); LYMPHOCYTES % (AUTO) 12.4 % (20.0-44.0); MEAN CORPUSCULAR HEMOGLOBIN 27 PG (26.0-33.0); MEAN CORPUSCULAR HGB CONC 31 g/dl (31.0-36.0); MEAN CORPUSCULAR VOLUME 87 fL (82-100); MONOCYTES # (AUTO) 2.4 K/uL (0.1-1.30); NEUTROPHILS # (AUTO) 12.6 K/uL (1.8-8.9); NEUTROPHILS % (AUTO) 72.1 % (43.0-81.0); PLATELET COUNT (AUTO) 518 K/uL (150-450); RED BLOOD CELL COUNT(AUTO) 3.38 MIL/uL (4.0-5.2); RED CELL DISTRIBUTION WIDTH 16.6 % (11.5-15.0); WHITE BLOOD COUNT (AUTO) 17.5 K/uL (4.3-11.0)
[2023-04-01] MEDS: BLOOD SUGAR DIAGNOSTIC 1 EACH STRIP VI SCH ×4 (08:38→22:00)
[2023-04-01] MEDS: ALLOPURINOL 100 MG TABLET PO SCH (08:38)
[2023-04-01] MEDS: SODIUM BICARBONATE 650 MG TABLET PO SCH ×3 (08:38→17:24)
[2023-04-01] MEDS: GABAPENTIN 100 MG CAPSULE PO SCH ×3 (08:38→17:24)
[2023-04-01 08:39] LABS: CALCIUM, SERUM 8.4 mg/dL (8.5-10.1); CREATININE 6.1 mg/dL (0.6-1.3); MAGNESIUM 2.7 mg/dL (1.8-2.4); PHOSPHORUS 5.3 mg/dL (2.5-4.9); POTASSIUM 4.8 mmol/L (3.5-5.1)
[2023-04-01] MEDS: DOCUSATE SODIUM 100 MG CAPSULE PO SCH ×2 (08:39→17:24)
[2023-04-01] MEDS: ASCORBIC ACID 500 MG TABLET PO SCH (08:39)
[2023-04-01] MEDS: APIXABAN 2.5 MG TABLET PO SCH ×2 (08:40→17:00)
[2023-04-01] MEDS: PANTOPRAZOLE 40 MG TABLET.DR PO SCH (08:41)
[2023-04-01] MEDS: FAMOTIDINE (20 MG) 20 MG TABLET PO SCH (08:41)
[2023-04-01] MEDS: CLOTRIMAZOLE 1% 15 GM TUBE TP SCH ×2 (08:47→18:26)
[2023-04-01] MEDS: CARVEDILOL 12.5 MG TABLET PO SCH ×2 (09:00→17:25)
[2023-04-01] MEDS: DILTIAZEM HCL CD 240 MG PO SCH (09:00)
[2023-04-01] MEDS: hydrALAZINE HCL 25 MG TABLET PO SCH ×4 (09:00→21:00)
[2023-04-01] MEDS: *INSULIN REGULAR(HUMULIN R)HUM 100 UNIT/ML VIAL SQ PRN (09:32)
[2023-04-01 13:07] LABS: *ANA ANTI-CENTROMERE B AB <0.2 AI (0.0-0.9); *ANA ANTI-DNA(DS) AB, QN <1 IU/mL (0-9); *ANA ANTI-JO-1 <0.2 AI (0.0-0.9); *ANA ANTICHROMATIN ANTIBODY <0.2 AI (0.0-0.9); *ANA RNP ANTIBODIES 0.2 AI (0.0-0.9); *ANA SJOGREN'S ANTI-SS-A <0.2 AI (0.0-0.9); *ANA SJOGREN'S ANTI-SS-B <0.2 AI (0.0-0.9); *ANAANTI-SCLERODERMA-70 AB <0.2 AI (0.0-0.9); *ANASMITH AB <0.2 AI (0.0-0.9)
[2023-04-01] MEDS: INSULIN REGULAR, HUMAN 100 UNIT/ML 3 ML VIAL SQ PRN (18:13)
[2023-04-01] MEDS: CEFEPIME 1 GM in IV D5W 50 ML IV SCH (20:36)
[2023-04-01] MEDS: ATORVASTATIN 40 MG TABLET PO SCH (22:25)
[2023-04-02] VITALS (7 sets, daily range): BP systolic 97–122; BP diastolic 53–77; TEMP 97.2–98.5; O2SAT 94–99
[2023-04-02] MEDS: ALBUTEROL FS 2.5 MG/0.5 ML VIAL.NEB NEB SCH ×4 (01:18→19:30)
[2023-04-02] MEDS: IPRATROPIUM NEB FS 0.5 MG/2.5 ML AMPUL.NEB NEB SCH ×4 (01:18→19:30)
[2023-04-02 07:55] LABS: BASOPHILS % (AUTO) 0.1 % (0.0-2.0); EOSINOPHILS # (AUTO) 0.3 K/uL (0.0-0.7); EOSINOPHILS % (AUTO) 1.3 % (0.0-6.0); HEMATOCRIT 30 % (33-45); HEMOGLOBIN 9.1 g/dL (11.5-14.8); LYMPHOCYTES # (AUTO) 1.9 K/uL (0.8-4.8); LYMPHOCYTES % (AUTO) 10.1 % (20.0-44.0); MEAN CORPUSCULAR HEMOGLOBIN 26 PG (26.0-33.0); MEAN CORPUSCULAR HGB CONC 31 g/dl (31.0-36.0); MEAN CORPUSCULAR VOLUME 86 fL (82-100); MONOCYTES # (AUTO) 2.8 K/uL (0.1-1.30); MONOCYTES % (AUTO) 14.4 % (2.0-12.0); NEUTROPHILS # (AUTO) 14.3 K/uL (1.8-8.9); NEUTROPHILS % (AUTO) 74.1 % (43.0-81.0); PLATELET COUNT (AUTO) 528 K/uL (150-450); RED BLOOD CELL COUNT(AUTO) 3.44 MIL/uL (4.0-5.2); RED CELL DISTRIBUTION WIDTH 16.3 % (11.5-15.0); WHITE BLOOD COUNT (AUTO) 19.3 K/uL (4.3-11.0)
[2023-04-02 08:09] LABS: ALBUMIN 2.2 g/dL (3.4-5.0); BILIRUBIN,TOTAL 0.5 mg/dL (0.2-1.0); CALCIUM, SERUM 8.4 mg/dL (8.5-10.1); CREATININE 6.4 mg/dL (0.6-1.3); MAGNESIUM 2.7 mg/dL (1.8-2.4); PHOSPHORUS 5.9 mg/dL (2.5-4.9); POTASSIUM 5.1 mmol/L (3.5-5.1); TOTAL PROTEIN, SERUM 6.5 g/dL (6.4-8.2)
[2023-04-02] MEDS: MORPHINE SULFATE INJ 2 MG/ML DISP.SYRIN IV PRN (08:25)
[2023-04-02] MEDS: PANTOPRAZOLE 40 MG TABLET.DR PO SCH (08:41)
[2023-04-02] MEDS: ASCORBIC ACID 500 MG TABLET PO SCH (08:41)
[2023-04-02] MEDS: BLOOD SUGAR DIAGNOSTIC 1 EACH STRIP VI SCH ×4 (08:41→22:31)
[2023-04-02] MEDS: SODIUM BICARBONATE 650 MG TABLET PO SCH ×3 (08:41→17:39)
[2023-04-02] MEDS: FAMOTIDINE (20 MG) 20 MG TABLET PO SCH (08:45)
[2023-04-02] MEDS: ALLOPURINOL 100 MG TABLET PO SCH (08:46)
[2023-04-02] MEDS: CARVEDILOL 12.5 MG TABLET PO SCH ×2 (08:46→17:39)
[2023-04-02] MEDS: DOCUSATE SODIUM 100 MG CAPSULE PO SCH ×2 (08:46→17:39)
[2023-04-02] MEDS: GABAPENTIN 100 MG CAPSULE PO SCH ×3 (08:46→17:38)
[2023-04-02] MEDS: DILTIAZEM HCL CD 240 MG PO SCH (08:46)
[2023-04-02] MEDS: hydrALAZINE HCL 25 MG TABLET PO SCH ×4 (08:47→20:43)
[2023-04-02] MEDS: CLOTRIMAZOLE 1% 15 GM TUBE TP SCH ×2 (08:48→17:41)
[2023-04-02] MEDS: APIXABAN 2.5 MG TABLET PO SCH ×2 (08:51→17:00)
[2023-04-02] MEDS: INSULIN REGULAR, HUMAN 100 UNIT/ML 3 ML VIAL SQ PRN (17:41)
[2023-04-02] MEDS: ALBUMIN 25% 25 GM in PREMIX 1 EA IV PRN (19:36)
[2023-04-02] MEDS: CEFEPIME 1 GM in IV D5W 50 ML IV SCH (20:00)
[2023-04-02] MEDS: ACETAMINOPHEN 325 MG TABLET PO PRN (20:30)
[2023-04-02] MEDS: ATORVASTATIN 40 MG TABLET PO SCH (22:00)
[2023-04-02] MEDS: *INSULIN REGULAR(HUMULIN R)HUM 100 UNIT/ML VIAL SQ PRN (22:31)
[2023-04-03] VITALS (7 sets, daily range): BP systolic 110–132; BP diastolic 50–72; TEMP 97.8–98.4; O2SAT 96–99
[2023-04-03] MEDS: IPRATROPIUM NEB FS 0.5 MG/2.5 ML AMPUL.NEB NEB SCH ×4 (01:13→19:30)
[2023-04-03] MEDS: ALBUTEROL FS 2.5 MG/0.5 ML VIAL.NEB NEB SCH ×4 (01:13→19:30)
[2023-04-03] MEDS: MORPHINE SULFATE INJ 2 MG/ML DISP.SYRIN IV PRN (02:46)
[2023-04-03] MEDS: CEFEPIME 1 GM in IV D5W 50 ML IV SCH ×2 (02:48→20:32)
[2023-04-03] MEDS: BLOOD SUGAR DIAGNOSTIC 1 EACH STRIP VI SCH ×4 (07:25→22:18)
[2023-04-03 07:27] LABS: BASOPHILS % (AUTO) 0.2 % (0.0-2.0); EOSINOPHILS # (AUTO) 0.2 K/uL (0.0-0.7); EOSINOPHILS % (AUTO) 0.9 % (0.0-6.0); HEMATOCRIT 28 % (33-45); HEMOGLOBIN 8.6 g/dL (11.5-14.8); LYMPHOCYTES # (AUTO) 2.4 K/uL (0.8-4.8); LYMPHOCYTES % (AUTO) 12.7 % (20.0-44.0); MEAN CORPUSCULAR HEMOGLOBIN 27 PG (26.0-33.0); MEAN CORPUSCULAR HGB CONC 31 g/dl (31.0-36.0); MEAN CORPUSCULAR VOLUME 86 fL (82-100); MONOCYTES # (AUTO) 2.8 K/uL (0.1-1.30); MONOCYTES % (AUTO) 14.9 % (2.0-12.0); NEUTROPHILS # (AUTO) 13.3 K/uL (1.8-8.9); NEUTROPHILS % (AUTO) 71.3 % (43.0-81.0); PLATELET COUNT (AUTO) 479 K/uL (150-450); RED BLOOD CELL COUNT(AUTO) 3.22 MIL/uL (4.0-5.2); RED CELL DISTRIBUTION WIDTH 16.3 % (11.5-15.0); WHITE BLOOD COUNT (AUTO) 18.6 K/uL (4.3-11.0)
[2023-04-03 07:47] LABS: CALCIUM, SERUM 8.5 mg/dL (8.5-10.1); CREATININE 5.6 mg/dL (0.6-1.3); MAGNESIUM 2.4 mg/dL (1.8-2.4); PHOSPHORUS 5.3 mg/dL (2.5-4.9); POTASSIUM 4.7 mmol/L (3.5-5.1)
[2023-04-03] MEDS: PANTOPRAZOLE 40 MG TABLET.DR PO SCH (07:49)
[2023-04-03] MEDS: SODIUM BICARBONATE 650 MG TABLET PO SCH ×3 (07:52→17:28)
[2023-04-03] MEDS: GABAPENTIN 100 MG CAPSULE PO SCH ×3 (08:31→16:25)
[2023-04-03] MEDS: hydrALAZINE HCL 25 MG TABLET PO SCH ×5 (08:32→21:30)
[2023-04-03] MEDS: ALLOPURINOL 100 MG TABLET PO SCH (08:33)
[2023-04-03] MEDS: DILTIAZEM HCL CD 240 MG PO SCH (08:33)
[2023-04-03] MEDS: ASCORBIC ACID 500 MG TABLET PO SCH (08:33)
[2023-04-03] MEDS: FAMOTIDINE (20 MG) 20 MG TABLET PO SCH (08:33)
[2023-04-03] MEDS: CARVEDILOL 12.5 MG TABLET PO SCH ×2 (08:34→16:24)
[2023-04-03] MEDS: DOCUSATE SODIUM 100 MG CAPSULE PO SCH ×3 (08:35→16:24)
[2023-04-03] MEDS: CLOTRIMAZOLE 1% 15 GM TUBE TP SCH ×2 (08:35→16:23)
[2023-04-03] MEDS: APIXABAN 2.5 MG TABLET PO SCH ×2 (08:36→16:25)
[2023-04-03 08:38] LABS: THYROID STIMULATING HORMONE 3.676 uIU/mL (0.358-3.74)
[2023-04-03] MEDS: ATORVASTATIN 40 MG TABLET PO SCH ×2 (21:30→22:00)
[2023-04-03] MEDS: *INSULIN REGULAR(HUMULIN R)HUM 100 UNIT/ML VIAL SQ PRN (22:19)
[2023-04-04] VITALS (8 sets, daily range): BP systolic 95–116; BP diastolic 57–80; TEMP 98–98.9; O2SAT 96–100
[2023-04-04] MEDS: ALBUTEROL FS 2.5 MG/0.5 ML VIAL.NEB NEB SCH ×4 (01:30→19:30)
[2023-04-04] MEDS: IPRATROPIUM NEB FS 0.5 MG/2.5 ML AMPUL.NEB NEB SCH ×4 (01:30→19:30)
[2023-04-04] MEDS: BLOOD SUGAR DIAGNOSTIC 1 EACH STRIP VI SCH ×4 (07:29→22:05)
[2023-04-04] MEDS: PANTOPRAZOLE 40 MG TABLET.DR PO SCH (07:36)
[2023-04-04] MEDS: SODIUM BICARBONATE 650 MG TABLET PO SCH ×3 (07:38→17:18)
[2023-04-04 07:46] LABS: BASOPHILS # (AUTO) 0.1 K/uL (0.0-0.2); BASOPHILS % (AUTO) 0.6 % (0.0-2.0); EOSINOPHILS # (AUTO) 0.2 K/uL (0.0-0.7); EOSINOPHILS % (AUTO) 1.1 % (0.0-6.0); HEMATOCRIT 30 % (33-45); LYMPHOCYTES % (AUTO) 10.8 % (20.0-44.0); MEAN CORPUSCULAR HEMOGLOBIN 26 PG (26.0-33.0); MEAN CORPUSCULAR HGB CONC 31 g/dl (31.0-36.0); MEAN CORPUSCULAR VOLUME 86 fL (82-100); MONOCYTES # (AUTO) 2.7 K/uL (0.1-1.30); MONOCYTES % (AUTO) 14.4 % (2.0-12.0); NEUTROPHILS # (AUTO) 13.5 K/uL (1.8-8.9); NEUTROPHILS % (AUTO) 73.1 % (43.0-81.0); PLATELET COUNT (AUTO) 564 K/uL (150-450); RED BLOOD CELL COUNT(AUTO) 3.44 MIL/uL (4.0-5.2); RED CELL DISTRIBUTION WIDTH 16.4 % (11.5-15.0); WHITE BLOOD COUNT (AUTO) 18.5 K/uL (4.3-11.0)
[2023-04-04 07:48] LABS: CALCIUM, SERUM 8.6 mg/dL (8.5-10.1); CREATININE 6.8 mg/dL (0.6-1.3); MAGNESIUM 2.6 mg/dL (1.8-2.4); PHOSPHORUS 6.3 mg/dL (2.5-4.9); POTASSIUM 5.1 mmol/L (3.5-5.1)
[2023-04-04] MEDS: hydrALAZINE HCL 25 MG TABLET PO SCH ×4 (09:22→21:00)
[2023-04-04] MEDS: GABAPENTIN 100 MG CAPSULE PO SCH ×3 (09:22→16:35)
[2023-04-04] MEDS: FAMOTIDINE (20 MG) 20 MG TABLET PO SCH (09:22)
[2023-04-04] MEDS: DILTIAZEM HCL CD 240 MG PO SCH (09:22)
[2023-04-04] MEDS: ASCORBIC ACID 500 MG TABLET PO SCH (09:22)
[2023-04-04] MEDS: ALLOPURINOL 100 MG TABLET PO SCH (09:23)
[2023-04-04] MEDS: CARVEDILOL 12.5 MG TABLET PO SCH ×2 (09:23→16:35)
[2023-04-04] MEDS: CLOTRIMAZOLE 1% 15 GM TUBE TP SCH ×2 (09:23→16:08)
[2023-04-04] MEDS: DOCUSATE SODIUM 100 MG CAPSULE PO SCH ×4 (09:23→16:35)
[2023-04-04] MEDS: APIXABAN 2.5 MG TABLET PO SCH ×2 (09:35→16:35)
[2023-04-04] MEDS: SOD FERRIC GLUC 125 MG in IV NS 0.9% 100 ML IV SCH (15:30)
[2023-04-04] MEDS: MORPHINE SULFATE INJ 2 MG/ML DISP.SYRIN IV PRN (15:40)
[2023-04-04] MEDS: CEFEPIME 1 GM in IV D5W 50 ML IV SCH (20:27)
[2023-04-04] MEDS: ATORVASTATIN 40 MG TABLET PO SCH (22:04)
[2023-04-04] MEDS: *INSULIN REGULAR(HUMULIN R)HUM 100 UNIT/ML VIAL SQ PRN (22:06)
[2023-04-05] VITALS: BP 100/75; TEMP 98.4; O2SAT 98
[2023-04-05] MEDS: IPRATROPIUM NEB FS 0.5 MG/2.5 ML AMPUL.NEB NEB SCH ×4 (01:30→19:30)
[2023-04-05] MEDS: ALBUTEROL FS 2.5 MG/0.5 ML VIAL.NEB NEB SCH ×4 (01:30→19:30)
[2023-04-05 04:00] VITALS: BP 106/78; TEMP 98; O2SAT 98
[2023-04-05 07:05] LABS: BASOPHILS % (AUTO) 0.1 % (0.0-2.0); EOSINOPHILS # (AUTO) 0.2 K/uL (0.0-0.7); EOSINOPHILS % (AUTO) 0.8 % (0.0-6.0); HEMATOCRIT 27 % (33-45); HEMOGLOBIN 8.5 g/dL (11.5-14.8); LYMPHOCYTES # (AUTO) 1.4 K/uL (0.8-4.8); LYMPHOCYTES % (AUTO) 6.9 % (20.0-44.0); MEAN CORPUSCULAR HEMOGLOBIN 27 PG (26.0-33.0); MEAN CORPUSCULAR HGB CONC 32 g/dl (31.0-36.0); MEAN CORPUSCULAR VOLUME 85 fL (82-100); MONOCYTES # (AUTO) 2.3 K/uL (0.1-1.30); MONOCYTES % (AUTO) 11.1 % (2.0-12.0); NEUTROPHILS # (AUTO) 16.9 K/uL (1.8-8.9); NEUTROPHILS % (AUTO) 81.1 % (43.0-81.0); PLATELET COUNT (AUTO) 462 K/uL (150-450); RED BLOOD CELL COUNT(AUTO) 3.15 MIL/uL (4.0-5.2); WHITE BLOOD COUNT (AUTO) 20.8 K/uL (4.3-11.0)
[2023-04-05] MEDS: BLOOD SUGAR DIAGNOSTIC 1 EACH STRIP VI SCH ×4 (07:23→22:10)
[2023-04-05 07:49] LABS: CALCIUM, SERUM 7.9 mg/dL (8.5-10.1); CREATININE 4.5 mg/dL (0.6-1.3); MAGNESIUM 2.1 mg/dL (1.8-2.4); PHOSPHORUS 4.2 mg/dL (2.5-4.9); POTASSIUM 4.1 mmol/L (3.5-5.1)
[2023-04-05 08:00] VITALS: BP 100/75; TEMP 98.4; O2SAT 98
[2023-04-05 08:13] LABS: FREE KAPPA LT CHAINS SERUM 161.8 mg/L (3.3-19.4); FREE LAMBDA LT CHAIN SERUM 120.2 mg/L (5.7-26.3); KAPPA/LAMBDA RATIO SERUM 1.35 (0.26-1.65)
[2023-04-05] MEDS: SODIUM BICARBONATE 650 MG TABLET PO SCH ×3 (08:44→17:38)
[2023-04-05] MEDS: CARVEDILOL 12.5 MG TABLET PO SCH ×2 (08:45→17:00)
[2023-04-05] MEDS: APIXABAN 2.5 MG TABLET PO SCH ×2 (08:46→17:00)
[2023-04-05] MEDS: ALLOPURINOL 100 MG TABLET PO SCH (08:46)
[2023-04-05] MEDS: DOCUSATE SODIUM 100 MG CAPSULE PO SCH ×4 (08:47→17:00)
[2023-04-05] MEDS: hydrALAZINE HCL 25 MG TABLET PO SCH ×4 (08:47→21:00)
[2023-04-05] MEDS: PANTOPRAZOLE 40 MG TABLET.DR PO SCH (08:47)
[2023-04-05] MEDS: FAMOTIDINE (20 MG) 20 MG TABLET PO SCH (08:47)
[2023-04-05] MEDS: GABAPENTIN 100 MG CAPSULE PO SCH ×3 (08:48→17:00)
[2023-04-05] MEDS: DILTIAZEM HCL CD 240 MG PO SCH ×2 (08:48→08:49)
[2023-04-05] MEDS: ASCORBIC ACID 500 MG TABLET PO SCH (08:48)
[2023-04-05] MEDS: CLOTRIMAZOLE 1% 15 GM TUBE TP SCH ×2 (08:50→17:04)
[2023-04-05 12:00] VITALS: BP 156/75; TEMP 98.4; O2SAT 98
[2023-04-05] MEDS: SOD FERRIC GLUC 125 MG in IV NS 0.9% 100 ML IV SCH (13:51)
[2023-04-05 16:00] VITALS: BP 150/74; TEMP 98.4; O2SAT 98
[2023-04-05] MEDS: *INSULIN REGULAR(HUMULIN R)HUM 100 UNIT/ML VIAL SQ PRN (17:25)
[2023-04-05] MEDS: CEFEPIME 1 GM in IV D5W 50 ML IV SCH (19:28)
[2023-04-05 20:00] VITALS: BP 95/62; TEMP 98.1; O2SAT 98
[2023-04-05] MEDS: ACETAMINOPHEN 325 MG TABLET PO PRN (20:43)
[2023-04-05] MEDS: ONDANSETRON HCL/PF 4 MG/2 ML VIAL IVP PRN (20:58)
[2023-04-05] MEDS: ATORVASTATIN 40 MG TABLET PO SCH (21:09)
[2023-04-06] MEDS: MORPHINE SULFATE INJ 2 MG/ML DISP.SYRIN IV PRN ×2 (00:39→08:24)
[2023-04-06 01:11] LABS: CANCER AG, 15-3 62.4 U/mL (0.0-25.0); FOLIC ACID 8.2 ng/mL (>3.0)
[2023-04-06] MEDS: ALBUTEROL FS 2.5 MG/0.5 ML VIAL.NEB NEB SCH ×4 (01:30→19:30)
[2023-04-06] MEDS: IPRATROPIUM NEB FS 0.5 MG/2.5 ML AMPUL.NEB NEB SCH ×4 (01:30→19:30)
[2023-04-06 04:00] VITALS: BP 93/51; TEMP 97.3
[2023-04-06] MEDS: BLOOD SUGAR DIAGNOSTIC 1 EACH STRIP VI SCH ×5 (07:11→21:32)
[2023-04-06] MEDS: INSULIN REGULAR, HUMAN 100 UNIT/ML 3 ML VIAL SQ PRN (07:15)
[2023-04-06] MEDS: PANTOPRAZOLE 40 MG TABLET.DR PO SCH (07:30)
[2023-04-06 07:59] LABS: BASOPHILS % (AUTO) 0.1 % (0.0-2.0); EOSINOPHILS # (AUTO) 0.1 K/uL (0.0-0.7); EOSINOPHILS % (AUTO) 0.4 % (0.0-6.0); HEMATOCRIT 27 % (33-45); HEMOGLOBIN 8.1 g/dL (11.5-14.8); LYMPHOCYTES # (AUTO) 1.7 K/uL (0.8-4.8); LYMPHOCYTES % (AUTO) 6.8 % (20.0-44.0); MEAN CORPUSCULAR HEMOGLOBIN 26 PG (26.0-33.0); MEAN CORPUSCULAR HGB CONC 31 g/dl (31.0-36.0); MEAN CORPUSCULAR VOLUME 86 fL (82-100); MONOCYTES % (AUTO) 11.9 % (2.0-12.0); NEUTROPHILS # (AUTO) 20.3 K/uL (1.8-8.9); NEUTROPHILS % (AUTO) 80.8 % (43.0-81.0); PLATELET COUNT (AUTO) 414 K/uL (150-450); RED CELL DISTRIBUTION WIDTH 16.3 % (11.5-15.0); WHITE BLOOD COUNT (AUTO) 25.1 K/uL (4.3-11.0)
[2023-04-06 08:00] VITALS: BP 106/78; TEMP 98; O2SAT 98
[2023-04-06] MEDS: SODIUM BICARBONATE 650 MG TABLET PO SCH ×3 (08:00→17:09)
[2023-04-06 08:20] LABS: CALCIUM, SERUM 8.4 mg/dL (8.5-10.1); CREATININE 6.3 mg/dL (0.6-1.3); MAGNESIUM 2.5 mg/dL (1.8-2.4); PHOSPHORUS 6.6 mg/dL (2.5-4.9)
[2023-04-06] MEDS: hydrALAZINE HCL 25 MG TABLET PO SCH ×4 (08:24→21:00)
[2023-04-06] MEDS: DILTIAZEM HCL CD 240 MG PO SCH (08:25)
[2023-04-06] MEDS: DOCUSATE SODIUM 100 MG CAPSULE PO SCH ×4 (08:25→17:00)
[2023-04-06] MEDS: ASCORBIC ACID 500 MG TABLET PO SCH (08:26)
[2023-04-06] MEDS: CARVEDILOL 12.5 MG TABLET PO SCH ×2 (08:26→17:00)
[2023-04-06] MEDS: ALLOPURINOL 100 MG TABLET PO SCH (08:26)
[2023-04-06] MEDS: FAMOTIDINE (20 MG) 20 MG TABLET PO SCH (08:26)
[2023-04-06] MEDS: CLOTRIMAZOLE 1% 15 GM TUBE TP SCH ×2 (08:26→17:09)
[2023-04-06] MEDS: GABAPENTIN 100 MG CAPSULE PO SCH ×3 (08:26→17:00)
[2023-04-06 11:29] LABS: BILIRUBIN,DIRECT 0.3 mg/dL (0.0-0.2); BILIRUBIN,TOTAL 0.6 mg/dL (0.2-1.0); TOTAL PROTEIN, SERUM 6.7 g/dL (6.4-8.2)
[2023-04-06] MEDS: *INSULIN REGULAR(HUMULIN R)HUM 100 UNIT/ML VIAL SQ PRN ×2 (11:33→21:33)
[2023-04-06 12:04] LABS: INR 1.62 (0.91-1.10); PARTIAL THROMBOPLASTIN TIME 46.8 SEC (24.3-34.3); PROTHROMBIN TIME 16.6 SECS (9.2-11.1)
[2023-04-06] MEDS: SOD FERRIC GLUC 125 MG in IV NS 0.9% 100 ML IV SCH (14:24)
[2023-04-06 16:00] VITALS: BP 112/75; TEMP 98.4; O2SAT 98
[2023-04-06 20:00] VITALS: BP 113/75; TEMP 97.9; O2SAT 100
[2023-04-06] MEDS: CEFEPIME 1 GM in IV D5W 50 ML IV SCH (20:07)
[2023-04-06] MEDS: ATORVASTATIN 40 MG TABLET PO SCH (21:32)
[2023-04-07] VITALS (7 sets, daily range): BP systolic 100–113; BP diastolic 65–75; TEMP 97.3–98.9; O2SAT 95–100
[2023-04-07] MEDS: MORPHINE SULFATE INJ 2 MG/ML DISP.SYRIN IV PRN (00:08)
[2023-04-07] MEDS: IPRATROPIUM NEB FS 0.5 MG/2.5 ML AMPUL.NEB NEB SCH ×4 (01:30→19:30)
[2023-04-07] MEDS: ALBUTEROL FS 2.5 MG/0.5 ML VIAL.NEB NEB SCH ×4 (01:30→19:30)
[2023-04-07] MEDS: PANTOPRAZOLE 40 MG TABLET.DR PO SCH (07:30)
[2023-04-07 07:32] LABS: ALBUMIN 2.2 g/dL (3.4-5.0); BILIRUBIN,TOTAL 0.5 mg/dL (0.2-1.0); CALCIUM, SERUM 8.6 mg/dL (8.5-10.1); CREATININE 5.1 mg/dL (0.6-1.3); MAGNESIUM 2.5 mg/dL (1.8-2.4); PHOSPHORUS 5.5 mg/dL (2.5-4.9); POTASSIUM 4.7 mmol/L (3.5-5.1); TOTAL PROTEIN, SERUM 6.9 g/dL (6.4-8.2)
[2023-04-07 07:58] LABS: BASOPHILS % (AUTO) 0.1 % (0.0-2.0); EOSINOPHILS # (AUTO) 0.2 K/uL (0.0-0.7); EOSINOPHILS % (AUTO) 0.8 % (0.0-6.0); HEMATOCRIT 27 % (33-45); HEMOGLOBIN 8.2 g/dL (11.5-14.8); LYMPHOCYTES # (AUTO) 2.5 K/uL (0.8-4.8); LYMPHOCYTES % (AUTO) 10.4 % (20.0-44.0); MEAN CORPUSCULAR HEMOGLOBIN 26 PG (26.0-33.0); MEAN CORPUSCULAR HGB CONC 30 g/dl (31.0-36.0); MEAN CORPUSCULAR VOLUME 87 fL (82-100); MONOCYTES # (AUTO) 3.4 K/uL (0.1-1.30); MONOCYTES % (AUTO) 14.2 % (2.0-12.0); NEUTROPHILS % (AUTO) 74.5 % (43.0-81.0); PLATELET COUNT (AUTO) 420 K/uL (150-450); RED CELL DISTRIBUTION WIDTH 16.9 % (11.5-15.0); WHITE BLOOD COUNT (AUTO) 24.2 K/uL (4.3-11.0)
[2023-04-07] MEDS: SODIUM BICARBONATE 650 MG TABLET PO SCH ×3 (08:00→18:00)
[2023-04-07] MEDS: BLOOD SUGAR DIAGNOSTIC 1 EACH STRIP VI SCH ×4 (08:31→20:28)
[2023-04-07] MEDS: FAMOTIDINE (20 MG) 20 MG TABLET PO SCH (09:00)
[2023-04-07] MEDS: DILTIAZEM HCL CD 240 MG PO SCH (09:00)
[2023-04-07] MEDS: ASCORBIC ACID 500 MG TABLET PO SCH (09:00)
[2023-04-07] MEDS: CARVEDILOL 12.5 MG TABLET PO SCH ×2 (09:00→17:00)
[2023-04-07] MEDS: DOCUSATE SODIUM 100 MG CAPSULE PO SCH ×3 (09:00→17:00)
[2023-04-07] MEDS: hydrALAZINE HCL 25 MG TABLET PO SCH ×4 (09:00→20:28)
[2023-04-07] MEDS: ALLOPURINOL 100 MG TABLET PO SCH (09:00)
[2023-04-07] MEDS: GABAPENTIN 100 MG CAPSULE PO SCH ×3 (09:00→17:00)
[2023-04-07] MEDS ORDERED: LIDOCAINE HCL/MPF 1% 30 ML VIAL IJ ONE (09:44)
[2023-04-07] MEDS ORDERED: IOHEXOL 0 ML IV ONE (09:44)
[2023-04-07] MEDS ORDERED: HEPARIN SODIUM, PORCINE 1,000 UNIT/ML VIAL ONE (09:45)
[2023-04-07] MEDS: CLOTRIMAZOLE 1% 15 GM TUBE TP SCH ×2 (10:34→17:51)
[2023-04-07] MEDS: SOD FERRIC GLUC 125 MG in IV NS 0.9% 100 ML IV SCH (13:42)
[2023-04-07] MEDS ORDERED: FAMOTIDINE/PF INJ 20 MG/2 ML VIAL IV ONE (15:11)
[2023-04-07] MEDS ORDERED: FENTANYL PF 100MCG/2ML AMPUL ONE (15:11)
[2023-04-07] MEDS ORDERED: CLINDAMYCIN 900 MG/6 ML VIAL ONE (15:31)
[2023-04-07] MEDS: CEFEPIME 1 GM in IV D5W 50 ML IV SCH (20:28)
[2023-04-07] MEDS: ATORVASTATIN 40 MG TABLET PO SCH (20:28)
[2023-04-08] VITALS (8 sets, daily range): BP systolic 92–114; BP diastolic 50–70; TEMP 98.3–99.2; O2SAT 96–100
[2023-04-08] MEDS: IPRATROPIUM NEB FS 0.5 MG/2.5 ML AMPUL.NEB NEB SCH ×4 (01:30→19:56)
[2023-04-08] MEDS: ALBUTEROL FS 2.5 MG/0.5 ML VIAL.NEB NEB SCH ×4 (01:30→19:55)
[2023-04-08 07:32] LABS: BASOPHILS # (AUTO) 0.1 K/uL (0.0-0.2); BASOPHILS % (AUTO) 0.3 % (0.0-2.0); EOSINOPHILS # (AUTO) 0.2 K/uL (0.0-0.7); EOSINOPHILS % (AUTO) 0.8 % (0.0-6.0); HEMATOCRIT 30 % (33-45); LYMPHOCYTES # (AUTO) 3.2 K/uL (0.8-4.8); LYMPHOCYTES % (AUTO) 12.4 % (20.0-44.0); MEAN CORPUSCULAR HEMOGLOBIN 27 PG (26.0-33.0); MEAN CORPUSCULAR HGB CONC 30 g/dl (31.0-36.0); MEAN CORPUSCULAR VOLUME 88 fL (82-100); MONOCYTES # (AUTO) 4.3 K/uL (0.1-1.30); NEUTROPHILS # (AUTO) 17.7 K/uL (1.8-8.9); NEUTROPHILS % (AUTO) 69.5 % (43.0-81.0); PLATELET COUNT (AUTO) 351 K/uL (150-450); RED BLOOD CELL COUNT(AUTO) 3.38 MIL/uL (4.0-5.2); RED CELL DISTRIBUTION WIDTH 17.3 % (11.5-15.0); WHITE BLOOD COUNT (AUTO) 25.5 K/uL (4.3-11.0)
[2023-04-08 07:51] LABS: BILIRUBIN,TOTAL 0.6 mg/dL (0.2-1.0); CALCIUM, SERUM 8.5 mg/dL (8.5-10.1); CREATININE 6.1 mg/dL (0.6-1.3); MAGNESIUM 2.8 mg/dL (1.8-2.4); POTASSIUM 5.5 mmol/L (3.5-5.1); TOTAL PROTEIN, SERUM 7.2 g/dL (6.4-8.2)
[2023-04-08] MEDS: PANTOPRAZOLE 40 MG TABLET.DR PO SCH (08:06)
[2023-04-08] MEDS: BLOOD SUGAR DIAGNOSTIC 1 EACH STRIP VI SCH ×4 (08:07→22:01)
[2023-04-08] MEDS: DILTIAZEM HCL CD 240 MG PO SCH (09:00)
[2023-04-08] MEDS: DOCUSATE SODIUM 100 MG CAPSULE PO SCH ×2 (09:00→17:00)
[2023-04-08] MEDS: hydrALAZINE HCL 25 MG TABLET PO SCH ×4 (09:00→21:00)
[2023-04-08] MEDS: CARVEDILOL 12.5 MG TABLET PO SCH ×2 (09:00→17:00)
[2023-04-08] MEDS: GABAPENTIN 100 MG CAPSULE PO SCH ×3 (09:09→17:00)
[2023-04-08] MEDS: ASCORBIC ACID 500 MG TABLET PO SCH (09:10)
[2023-04-08] MEDS: FAMOTIDINE (20 MG) 20 MG TABLET PO SCH (09:10)
[2023-04-08] MEDS: ALLOPURINOL 100 MG TABLET PO SCH (09:11)
[2023-04-08] MEDS: SODIUM BICARBONATE 650 MG TABLET PO SCH ×3 (09:16→18:00)
[2023-04-08] MEDS: CLOTRIMAZOLE 1% 15 GM TUBE TP SCH ×2 (09:17→17:00)
[2023-04-08] MEDS: INSULIN REGULAR, HUMAN 100 UNIT/ML 3 ML VIAL SQ PRN (09:36)
[2023-04-08 09:37] LABS: ANISOCYTOSIS 1+; BASOPHILS % (MANUAL) 0 % (0.0-2.0); EOSINOPHILS % (MANUAL) 2 % (0-4); LYMPHOCYTES % (MANUAL) 10 % (16-48); MONOCYTES % (MANUAL) 15 % (0-11.0); NEUTROPHILS % (MANUAL) 73 (42-76); PLATELET ESTIMATE ADEQUATE; STOMATOCYTES 1+
[2023-04-08 12:07] LABS: INR 1.54 (0.91-1.10); PROTHROMBIN TIME 15.9 SECS (9.2-11.1)
[2023-04-08] MEDS: MORPHINE SULFATE INJ 2 MG/ML DISP.SYRIN IV PRN (12:54)
[2023-04-08] MEDS: SOD FERRIC GLUC 125 MG in IV NS 0.9% 100 ML IV SCH (15:24)
[2023-04-08] MEDS: ALBUMIN 25% 25 GM in PREMIX 1 EA IV PRN (21:41)
[2023-04-08] MEDS: MEROPENEM 500 MG in IV NS 0.9% 50 ML IV SCH (21:48)
[2023-04-08] MEDS ORDERED: VANCOMYCIN 1.5 GM in IV D5W 500ml IV ONE (22:00)
[2023-04-08] MEDS: ATORVASTATIN 40 MG TABLET PO SCH (22:00)
[2023-04-09] VITALS (11 sets, daily range): BP systolic 93–103; BP diastolic 50–62; TEMP 97.7–99.1; O2SAT 95–100
[2023-04-09] MEDS: ALBUTEROL FS 2.5 MG/0.5 ML VIAL.NEB NEB SCH ×4 (01:27→19:37)
[2023-04-09] MEDS: IPRATROPIUM NEB FS 0.5 MG/2.5 ML AMPUL.NEB NEB SCH ×4 (01:27→19:37)
[2023-04-09 06:58] LABS: BASOPHILS % (AUTO) 0.1 % (0.0-2.0); EOSINOPHILS # (AUTO) 0.1 K/uL (0.0-0.7); EOSINOPHILS % (AUTO) 0.4 % (0.0-6.0); HEMATOCRIT 29 % (33-45); HEMOGLOBIN 8.5 g/dL (11.5-14.8); LYMPHOCYTES # (AUTO) 2.9 K/uL (0.8-4.8); LYMPHOCYTES % (AUTO) 9.8 % (20.0-44.0); MEAN CORPUSCULAR HEMOGLOBIN 27 PG (26.0-33.0); MEAN CORPUSCULAR HGB CONC 30 g/dl (31.0-36.0); MEAN CORPUSCULAR VOLUME 90 fL (82-100); MONOCYTES % (AUTO) 13.6 % (2.0-12.0); NEUTROPHILS # (AUTO) 22.3 K/uL (1.8-8.9); NEUTROPHILS % (AUTO) 76.1 % (43.0-81.0); PLATELET COUNT (AUTO) 303 K/uL (150-450); RED CELL DISTRIBUTION WIDTH 17.4 % (11.5-15.0); WHITE BLOOD COUNT (AUTO) 29.3 K/uL (4.3-11.0)
[2023-04-09 07:12] LABS: ALBUMIN 2.5 g/dL (3.4-5.0); CALCIUM, SERUM 8.3 mg/dL (8.5-10.1); CREATININE 4.8 mg/dL (0.6-1.3); MAGNESIUM 2.3 mg/dL (1.8-2.4); PHOSPHORUS 4.2 mg/dL (2.5-4.9); TOTAL PROTEIN, SERUM 7.1 g/dL (6.4-8.2)
[2023-04-09 07:25] LABS: INR 1.85 (0.91-1.10); PROTHROMBIN TIME 18.8 SECS (9.2-11.1)
[2023-04-09] MEDS: PANTOPRAZOLE 40 MG TABLET.DR PO SCH (07:30)
[2023-04-09] MEDS: SODIUM BICARBONATE 650 MG TABLET PO SCH ×3 (08:00→18:00)
[2023-04-09] MEDS: BLOOD SUGAR DIAGNOSTIC 1 EACH STRIP VI SCH ×4 (08:19→21:29)
[2023-04-09] MEDS: FAMOTIDINE (20 MG) 20 MG TABLET PO SCH (09:00)
[2023-04-09] MEDS: DOCUSATE SODIUM 100 MG CAPSULE PO SCH ×2 (09:00→17:00)
[2023-04-09] MEDS: CARVEDILOL 12.5 MG TABLET PO SCH ×2 (09:00→17:00)
[2023-04-09] MEDS: CLOTRIMAZOLE 1% 15 GM TUBE TP SCH ×2 (09:00→17:49)
[2023-04-09] MEDS: hydrALAZINE HCL 25 MG TABLET PO SCH ×4 (09:00→20:33)
[2023-04-09] MEDS: ASCORBIC ACID 500 MG TABLET PO SCH (09:00)
[2023-04-09] MEDS: ALLOPURINOL 100 MG TABLET PO SCH (09:00)
[2023-04-09] MEDS: GABAPENTIN 100 MG CAPSULE PO SCH ×3 (09:00→17:00)
[2023-04-09] MEDS: DILTIAZEM HCL CD 240 MG PO SCH (09:00)
[2023-04-09] MEDS: MEROPENEM 500 MG in IV NS 0.9% 50 ML IV SCH ×2 (09:03→20:11)
[2023-04-09] MEDS: ATORVASTATIN 40 MG TABLET PO SCH (21:28)
[2023-04-09] MEDS: *INSULIN REGULAR(HUMULIN R)HUM 100 UNIT/ML VIAL SQ PRN (21:30)
[2023-04-10] VITALS (35 sets, daily range): BP systolic 80–134; BP diastolic 40–74; TEMP 98.7–99; O2SAT 96–100
[2023-04-10] MEDS: ALBUTEROL FS 2.5 MG/0.5 ML VIAL.NEB NEB SCH ×4 (01:45→20:20)
[2023-04-10] MEDS: IPRATROPIUM NEB FS 0.5 MG/2.5 ML AMPUL.NEB NEB SCH ×4 (01:45→20:20)
[2023-04-10] MEDS: MORPHINE SULFATE INJ 2 MG/ML DISP.SYRIN IV PRN (05:43)
[2023-04-10] MEDS: PANTOPRAZOLE 40 MG TABLET.DR PO SCH (07:30)
[2023-04-10 07:31] LABS: BASOPHILS % (AUTO) 0.1 % (0.0-2.0); EOSINOPHILS # (AUTO) 0.1 K/uL (0.0-0.7); EOSINOPHILS % (AUTO) 0.4 % (0.0-6.0); HEMATOCRIT 27 % (33-45); HEMOGLOBIN 7.9 g/dL (11.5-14.8); LYMPHOCYTES % (AUTO) 9.7 % (20.0-44.0); MEAN CORPUSCULAR HEMOGLOBIN 26 PG (26.0-33.0); MEAN CORPUSCULAR HGB CONC 30 g/dl (31.0-36.0); MEAN CORPUSCULAR VOLUME 88 fL (82-100); MONOCYTES # (AUTO) 4.6 K/uL (0.1-1.30); MONOCYTES % (AUTO) 14.9 % (2.0-12.0); NEUTROPHILS # (AUTO) 23.2 K/uL (1.8-8.9); NEUTROPHILS % (AUTO) 74.9 % (43.0-81.0); PLATELET COUNT (AUTO) 293 K/uL (150-450); RED BLOOD CELL COUNT(AUTO) 3.04 MIL/uL (4.0-5.2)
[2023-04-10 07:52] LABS: BILIRUBIN,TOTAL 0.8 mg/dL (0.2-1.0); CALCIUM, SERUM 8.3 mg/dL (8.5-10.1); CREATININE 5.9 mg/dL (0.6-1.3); MAGNESIUM 2.4 mg/dL (1.8-2.4); PHOSPHORUS 5.2 mg/dL (2.5-4.9); POTASSIUM 4.4 mmol/L (3.5-5.1); TOTAL PROTEIN, SERUM 6.7 g/dL (6.4-8.2)
[2023-04-10 08:00] LABS: WHITE BLOOD COUNT (AUTO) 30.9 K/uL (4.3-11.0)
[2023-04-10] MEDS: SODIUM BICARBONATE 650 MG TABLET PO SCH ×3 (08:00→17:20)
[2023-04-10] MEDS: DOCUSATE SODIUM 100 MG CAPSULE PO SCH ×2 (09:00→16:22)
[2023-04-10] MEDS: hydrALAZINE HCL 25 MG TABLET PO SCH ×4 (09:00→21:00)
[2023-04-10] MEDS: ASCORBIC ACID 500 MG TABLET PO SCH (09:00)
[2023-04-10] MEDS: ALLOPURINOL 100 MG TABLET PO SCH (09:00)
[2023-04-10] MEDS: ENSURE CLEAR 237 ML LIQUID (MIX BERRY) PO SCH (09:00)
[2023-04-10] MEDS: CARVEDILOL 12.5 MG TABLET PO SCH ×2 (09:00→16:22)
[2023-04-10] MEDS: GABAPENTIN 100 MG CAPSULE PO SCH ×3 (09:00→16:22)
[2023-04-10] MEDS: FAMOTIDINE (20 MG) 20 MG TABLET PO SCH (09:00)
[2023-04-10] MEDS: MEROPENEM 500 MG in IV NS 0.9% 50 ML IV SCH ×3 (09:00→22:12)
[2023-04-10] MEDS: DILTIAZEM HCL CD 240 MG PO SCH (09:00)
[2023-04-10] MEDS: BLOOD SUGAR DIAGNOSTIC 1 EACH STRIP VI SCH ×4 (09:03→22:20)
[2023-04-10] MEDS: CLOTRIMAZOLE 1% 15 GM TUBE TP SCH ×2 (09:14→16:23)
[2023-04-10] MEDS: ALBUMIN 25% 25 GM in PREMIX 1 EA IV PRN (09:30)
[2023-04-10] MEDS ORDERED: NOREPINEPHRINE 8 MG in IV NS 0.9% 242 ML IV PRN (11:00)
[2023-04-10 11:41] LABS: ABG OXYGEN SATURATION 98.9 % (92.0-98.5); ABG PH 7.447 (7.350-7.450); ABG PO2 142.3 mmHg (75.0-100.0); ABG TOTAL HEMOGLOBIN 8.6 G/dL (12.0-16.0); COHb 0.6 % (0.5-1.5); MetHb 0.4 % (0.0-1.5); O2Hb 97.9 % (94.0-97.0); SITE, ABG Right Radial; VENT MODE, BG nasal cannula
[2023-04-10 12:36] LABS: ANISOCYTOSIS 1+; BASOPHILS % (MANUAL) 0 % (0.0-2.0); EOSINOPHILS % (MANUAL) 2 % (0-4); HYPOCHROMASIA 1+; LYMPHOCYTES % (MANUAL) 8 % (16-48); MONOCYTES % (MANUAL) 12 % (0-11.0); NEUTROPHILS % (MANUAL) 78 (42-76); PLATELET ESTIMATE ADEQUATE; STOMATOCYTES 1+
[2023-04-10] MEDS: IV D5/ 0.9% NACL 1,000 ML IV PRN (13:14)
[2023-04-10] MEDS: VANCOMYCIN POST DIALYSIS 500MG IV PRN ×2 (13:16)
[2023-04-10] MEDS: INSULIN REGULAR, HUMAN 100 UNIT/ML 3 ML VIAL SQ PRN (17:28)
[2023-04-10] MEDS: ATORVASTATIN 40 MG TABLET PO SCH (22:00)
[2023-04-10] MEDS: *INSULIN REGULAR(HUMULIN R)HUM 100 UNIT/ML VIAL SQ PRN (22:21)
[2023-04-11] VITALS (46 sets, daily range): BP systolic 59–118; BP diastolic 37–96; TEMP 97.2–98.7; O2SAT 93–100
[2023-04-11] MEDS: MORPHINE SULFATE INJ 2 MG/ML DISP.SYRIN IV PRN ×2 (01:34→11:29)
[2023-04-11] MEDS: IPRATROPIUM NEB FS 0.5 MG/2.5 ML AMPUL.NEB NEB SCH ×4 (01:47→20:24)
[2023-04-11] MEDS: ALBUTEROL FS 2.5 MG/0.5 ML VIAL.NEB NEB SCH ×4 (01:47→20:25)
[2023-04-11] MEDS: IV D5/ 0.9% NACL 1,000 ML IV PRN ×2 (06:18→23:35)
[2023-04-11] MEDS: PANTOPRAZOLE 40 MG TABLET.DR PO SCH (07:30)
[2023-04-11] MEDS: SODIUM BICARBONATE 650 MG TABLET PO SCH ×4 (08:00→17:37)
[2023-04-11] MEDS: BLOOD SUGAR DIAGNOSTIC 1 EACH STRIP VI SCH (08:37)
[2023-04-11] MEDS: hydrALAZINE HCL 25 MG TABLET PO SCH ×5 (08:38→20:27)
[2023-04-11] MEDS: DILTIAZEM HCL CD 240 MG PO SCH (08:41)
[2023-04-11] MEDS: CARVEDILOL 12.5 MG TABLET PO SCH ×2 (08:42→17:00)
[2023-04-11] MEDS: INSULIN REGULAR, HUMAN 100 UNIT/ML 3 ML VIAL SQ PRN ×4 (08:49→23:21)
[2023-04-11] MEDS: DOCUSATE SODIUM 100 MG CAPSULE PO SCH ×3 (08:59→17:26)
[2023-04-11] MEDS: ALLOPURINOL 100 MG TABLET PO SCH (09:00)
[2023-04-11] MEDS: VIT B CMPLX 3/FA/VIT C/BIOTIN 1 TAB TABLET PO SCH (09:00)
[2023-04-11] MEDS: ENSURE CLEAR 237 ML LIQUID (MIX BERRY) PO SCH (09:00)
[2023-04-11] MEDS: GABAPENTIN 100 MG CAPSULE PO SCH ×4 (09:00→17:26)
[2023-04-11] MEDS: ASCORBIC ACID 500 MG TABLET PO SCH (09:00)
[2023-04-11] MEDS: FAMOTIDINE (20 MG) 20 MG TABLET PO SCH (09:00)
[2023-04-11] MEDS: MEROPENEM 500 MG in IV NS 0.9% 50 ML IV SCH ×2 (09:10→20:06)
[2023-04-11] MEDS: CLOTRIMAZOLE 1% 15 GM TUBE TP SCH ×2 (09:55→17:20)
[2023-04-11] MEDS: BLOOD SUGAR DIAGNOSTIC 1 EACH STRIP IN SCH ×3 (12:46→23:17)
[2023-04-11] MEDS ORDERED: DEXTROSE 50%-WATER 50 ML DISP.SYRIN IV PRN (13:00)
[2023-04-11 13:22] LABS: BASOPHILS % (AUTO) 0.2 % (0.0-2.0); EOSINOPHILS # (AUTO) 0.2 K/uL (0.0-0.7); HEMATOCRIT 26 % (33-45); HEMOGLOBIN 7.9 g/dL (11.5-14.8); LYMPHOCYTES # (AUTO) 1.8 K/uL (0.8-4.8); LYMPHOCYTES % (AUTO) 8.3 % (20.0-44.0); MEAN CORPUSCULAR HEMOGLOBIN 27 PG (26.0-33.0); MEAN CORPUSCULAR HGB CONC 31 g/dl (31.0-36.0); MEAN CORPUSCULAR VOLUME 87 fL (82-100); MONOCYTES # (AUTO) 3.3 K/uL (0.1-1.30); MONOCYTES % (AUTO) 15.1 % (2.0-12.0); NEUTROPHILS # (AUTO) 16.5 K/uL (1.8-8.9); NEUTROPHILS % (AUTO) 75.4 % (43.0-81.0); PLATELET COUNT (AUTO) 236 K/uL (150-450); RED BLOOD CELL COUNT(AUTO) 2.96 MIL/uL (4.0-5.2); RED CELL DISTRIBUTION WIDTH 17.1 % (11.5-15.0); WHITE BLOOD COUNT (AUTO) 21.9 K/uL (4.3-11.0)
[2023-04-11 13:37] LABS: ALBUMIN 2.1 g/dL (3.4-5.0); BILIRUBIN,TOTAL 0.8 mg/dL (0.2-1.0); CALCIUM, SERUM 8.4 mg/dL (8.5-10.1); CREATININE 5.9 mg/dL (0.6-1.3); MAGNESIUM 2.4 mg/dL (1.8-2.4); PHOSPHORUS 4.4 mg/dL (2.5-4.9); TOTAL PROTEIN, SERUM 6.6 g/dL (6.4-8.2)
[2023-04-11] MEDS: MIDODRINE HCL (5MG) 5 MG TABLET PO SCH (17:30)
[2023-04-11] MEDS: ATORVASTATIN 40 MG TABLET PO SCH (22:00)
[2023-04-12] VITALS (13 sets, daily range): BP systolic 90–106; BP diastolic 54–68; TEMP 98.7–100; O2SAT 93–100
[2023-04-12] MEDS: IPRATROPIUM NEB FS 0.5 MG/2.5 ML AMPUL.NEB NEB SCH ×5 (01:57→19:52)
[2023-04-12] MEDS: ALBUTEROL FS 2.5 MG/0.5 ML VIAL.NEB NEB SCH ×5 (01:57→19:52)
[2023-04-12] MEDS: BLOOD SUGAR DIAGNOSTIC 1 EACH STRIP IN SCH ×3 (05:18→18:16)
[2023-04-12] MEDS: INSULIN REGULAR, HUMAN 100 UNIT/ML 3 ML VIAL SQ PRN ×3 (05:20→17:43)
[2023-04-12 05:56] LABS: BASOPHILS # (AUTO) 0.1 K/uL (0.0-0.2); BASOPHILS % (AUTO) 0.6 % (0.0-2.0); EOSINOPHILS # (AUTO) 0.3 K/uL (0.0-0.7); EOSINOPHILS % (AUTO) 1.2 % (0.0-6.0); HEMATOCRIT 29 % (33-45); HEMOGLOBIN 8.7 g/dL (11.5-14.8); LYMPHOCYTES # (AUTO) 3.5 K/uL (0.8-4.8); LYMPHOCYTES % (AUTO) 14.5 % (20.0-44.0); MEAN CORPUSCULAR HEMOGLOBIN 27 PG (26.0-33.0); MEAN CORPUSCULAR HGB CONC 30 g/dl (31.0-36.0); MEAN CORPUSCULAR VOLUME 91 fL (82-100); MONOCYTES # (AUTO) 3.6 K/uL (0.1-1.30); MONOCYTES % (AUTO) 15.2 % (2.0-12.0); NEUTROPHILS # (AUTO) 16.5 K/uL (1.8-8.9); NEUTROPHILS % (AUTO) 68.5 % (43.0-81.0); PLATELET COUNT (AUTO) 171 K/uL (150-450); RED BLOOD CELL COUNT(AUTO) 3.23 MIL/uL (4.0-5.2); RED CELL DISTRIBUTION WIDTH 17.5 % (11.5-15.0); WHITE BLOOD COUNT (AUTO) 24.1 K/uL (4.3-11.0)
[2023-04-12 06:13] LABS: ALBUMIN 2.1 g/dL (3.4-5.0); BILIRUBIN,TOTAL 0.9 mg/dL (0.2-1.0); CALCIUM, SERUM 8.5 mg/dL (8.5-10.1); CREATININE 6.5 mg/dL (0.6-1.3); MAGNESIUM 2.5 mg/dL (1.8-2.4); PHOSPHORUS 4.3 mg/dL (2.5-4.9); POTASSIUM 4.2 mmol/L (3.5-5.1); TOTAL PROTEIN, SERUM 6.9 g/dL (6.4-8.2)
[2023-04-12] MEDS: PANTOPRAZOLE 40 MG TABLET.DR PO SCH (07:30)
[2023-04-12] MEDS: SODIUM BICARBONATE 650 MG TABLET PO SCH ×3 (08:00→18:00)
[2023-04-12] MEDS: ENSURE CLEAR 237 ML LIQUID (MIX BERRY) PO SCH (09:00)
[2023-04-12] MEDS: VIT B CMPLX 3/FA/VIT C/BIOTIN 1 TAB TABLET PO SCH (09:00)
[2023-04-12] MEDS: CLOTRIMAZOLE 1% 15 GM TUBE TP SCH ×2 (09:00→17:00)
[2023-04-12] MEDS: hydrALAZINE HCL 25 MG TABLET PO SCH ×4 (09:00→21:00)
[2023-04-12] MEDS: MIDODRINE HCL (5MG) 5 MG TABLET PO SCH ×4 (09:00→17:00)
[2023-04-12] MEDS: GABAPENTIN 100 MG CAPSULE PO SCH ×3 (09:00→17:00)
[2023-04-12] MEDS: ASCORBIC ACID 500 MG TABLET PO SCH (09:00)
[2023-04-12] MEDS: ALLOPURINOL 100 MG TABLET PO SCH (09:00)
[2023-04-12] MEDS: DOCUSATE SODIUM 100 MG CAPSULE PO SCH ×2 (09:00→17:00)
[2023-04-12] MEDS: FAMOTIDINE (20 MG) 20 MG TABLET PO SCH (09:00)
[2023-04-12] MEDS: DILTIAZEM HCL CD 240 MG PO SCH (09:00)
[2023-04-12] MEDS: CARVEDILOL 12.5 MG TABLET PO SCH ×2 (09:00→17:00)
[2023-04-12 10:02] LABS: ANISOCYTOSIS 1+; BASOPHILS % (MANUAL) 0 % (0.0-2.0); EOSINOPHILS % (MANUAL) 0 % (0-4); HYPOCHROMASIA 1+; LYMPHOCYTES % (MANUAL) 12 % (16-48); MONOCYTES % (MANUAL) 16 % (0-11.0); NEUTROPHILS % (MANUAL) 72 (42-76); PLATELET ESTIMATE ADEQUATE; STOMATOCYTES 1+
[2023-04-12] MEDS: MEROPENEM 500 MG in IV NS 0.9% 50 ML IV SCH ×2 (10:06→21:51)
[2023-04-12] MEDS: ALBUMIN 25% 25 GM in PREMIX 1 EA IV PRN (12:52)
[2023-04-12] MEDS: MICAFUNGIN SODIUM 100 MG in IV NS 0.9% 100 ML IV SCH (13:25)
[2023-04-12] MEDS ORDERED: IV NS 0.9% 500 ML BAG IV ONE (15:30)
[2023-04-12] MEDS: IV D5/ 0.9% NACL 1,000 ML IV PRN (15:35)
[2023-04-12] MEDS: ATORVASTATIN 40 MG TABLET PO SCH (22:00)
[2023-04-13] VITALS (10 sets, daily range): BP systolic 94–109; BP diastolic 51–71; TEMP 99–99.5; O2SAT 95–100
[2023-04-13] MEDS: ALBUTEROL FS 2.5 MG/0.5 ML VIAL.NEB NEB SCH ×4 (01:30→19:30)
[2023-04-13] MEDS: IPRATROPIUM NEB FS 0.5 MG/2.5 ML AMPUL.NEB NEB SCH ×4 (01:30→19:30)
[2023-04-13] MEDS: BLOOD SUGAR DIAGNOSTIC 1 EACH STRIP IN SCH ×5 (06:00→23:49)
[2023-04-13 06:35] LABS: ALBUMIN 1.9 g/dL (3.4-5.0); CALCIUM, SERUM 8.1 mg/dL (8.5-10.1); CREATININE 5.4 mg/dL (0.6-1.3); MAGNESIUM 2.5 mg/dL (1.8-2.4); PHOSPHORUS 3.9 mg/dL (2.5-4.9); POTASSIUM 4.3 mmol/L (3.5-5.1); TOTAL PROTEIN, SERUM 6.4 g/dL (6.4-8.2)
[2023-04-13] MEDS: PANTOPRAZOLE 40 MG TABLET.DR PO SCH (07:30)
[2023-04-13] MEDS: SODIUM BICARBONATE 650 MG TABLET PO SCH ×3 (07:58→18:00)
[2023-04-13] MEDS: MIDODRINE HCL (5MG) 5 MG TABLET PO SCH ×3 (09:00→17:00)
[2023-04-13] MEDS: CARVEDILOL 12.5 MG TABLET PO SCH ×2 (09:00→17:00)
[2023-04-13] MEDS: CLOTRIMAZOLE 1% 15 GM TUBE TP SCH ×2 (09:00→17:38)
[2023-04-13] MEDS: VIT B CMPLX 3/FA/VIT C/BIOTIN 1 TAB TABLET PO SCH (09:00)
[2023-04-13] MEDS: DOCUSATE SODIUM 100 MG CAPSULE PO SCH ×2 (09:00→17:00)
[2023-04-13] MEDS: hydrALAZINE HCL 25 MG TABLET PO SCH ×4 (09:00→21:00)
[2023-04-13] MEDS: GABAPENTIN 100 MG CAPSULE PO SCH ×3 (09:00→17:00)
[2023-04-13] MEDS: DILTIAZEM HCL CD 240 MG PO SCH (09:00)
[2023-04-13] MEDS: ALLOPURINOL 100 MG TABLET PO SCH (09:00)
[2023-04-13] MEDS: ASCORBIC ACID 500 MG TABLET PO SCH (09:00)
[2023-04-13] MEDS: FAMOTIDINE (20 MG) 20 MG TABLET PO SCH (09:00)
[2023-04-13] MEDS: ENSURE CLEAR 237 ML LIQUID (MIX BERRY) PO SCH (09:00)
[2023-04-13] MEDS: MEROPENEM 500 MG in IV NS 0.9% 50 ML IV SCH ×2 (10:35→21:23)
[2023-04-13] MEDS: ALBUMIN 25% 25 GM in PREMIX 1 EA IV SCH ×2 (12:29→23:32)
[2023-04-13] MEDS: MICAFUNGIN SODIUM 100 MG in IV NS 0.9% 100 ML IV SCH (14:40)
[2023-04-13 15:33] LABS: BASOPHILS # (AUTO) 0.2 K/uL (0.0-0.2); BASOPHILS % (AUTO) 0.6 % (0.0-2.0); EOSINOPHILS # (AUTO) 0.2 K/uL (0.0-0.7); EOSINOPHILS % (AUTO) 0.7 % (0.0-6.0); HEMATOCRIT 26 % (33-45); HEMOGLOBIN 7.7 g/dL (11.5-14.8); LYMPHOCYTES # (AUTO) 3.1 K/uL (0.8-4.8); MEAN CORPUSCULAR HEMOGLOBIN 27 PG (26.0-33.0); MEAN CORPUSCULAR HGB CONC 30 g/dl (31.0-36.0); MEAN CORPUSCULAR VOLUME 89 fL (82-100); MONOCYTES # (AUTO) 3.8 K/uL (0.1-1.30); MONOCYTES % (AUTO) 14.9 % (2.0-12.0); NEUTROPHILS # (AUTO) 18.3 K/uL (1.8-8.9); NEUTROPHILS % (AUTO) 71.8 % (43.0-81.0); PLATELET COUNT (AUTO) 204 K/uL (150-450); RED BLOOD CELL COUNT(AUTO) 2.91 MIL/uL (4.0-5.2); RED CELL DISTRIBUTION WIDTH 17.8 % (11.5-15.0); WHITE BLOOD COUNT (AUTO) 25.5 K/uL (4.3-11.0)
[2023-04-13 17:30] LABS: ANISOCYTOSIS 1+; EOSINOPHILS % (MANUAL) 1 % (0-4); LYMPHOCYTES % (MANUAL) 10 % (16-48); METAMYELOCYTES % 2 % (0-0); MONOCYTES % (MANUAL) 11 % (0-11.0); MYELOCYTES % 1 % (0-0); NEUTROPHILS % (MANUAL) 75 (42-76); PLATELET ESTIMATE ADEQUATE
[2023-04-13] MEDS: ATORVASTATIN 40 MG TABLET PO SCH (21:25)
[2023-04-13] MEDS: INSULIN REGULAR, HUMAN 100 UNIT/ML 3 ML VIAL SQ PRN (23:51)
[2023-04-14] VITALS (98 sets, daily range): BP systolic 55–152; BP diastolic 24–95; TEMP 97.2–102.4; O2SAT 97–100
[2023-04-14] MEDS: IPRATROPIUM NEB FS 0.5 MG/2.5 ML AMPUL.NEB NEB SCH ×4 (01:18→19:31)
[2023-04-14] MEDS: ALBUTEROL FS 2.5 MG/0.5 ML VIAL.NEB NEB SCH ×2 (01:19→07:46)
[2023-04-14] MEDS ORDERED: NOREPINEPHRINE 4 MG/4 ML AMPUL IV ONE (01:35)
[2023-04-14] MEDS: NOREPINEPHRINE 32 MG in IV NS 0.9% 218 ML IV PRN ×3 (01:46→21:33)
[2023-04-14 02:00] LABS: BASOPHILS # (AUTO) 0.1 K/uL (0.0-0.2); BASOPHILS % (AUTO) 0.2 % (0.0-2.0); EOSINOPHILS # (AUTO) 0.2 K/uL (0.0-0.7); EOSINOPHILS % (AUTO) 0.7 % (0.0-6.0); HEMATOCRIT 24 % (33-45); LYMPHOCYTES # (AUTO) 7.4 K/uL (0.8-4.8); MEAN CORPUSCULAR HEMOGLOBIN 27 PG (26.0-33.0); MEAN CORPUSCULAR HGB CONC 29 g/dl (31.0-36.0); MEAN CORPUSCULAR VOLUME 92 fL (82-100); MONOCYTES # (AUTO) 4.2 K/uL (0.1-1.30); MONOCYTES % (AUTO) 14.7 % (2.0-12.0); NEUTROPHILS # (AUTO) 16.7 K/uL (1.8-8.9); NEUTROPHILS % (AUTO) 58.4 % (43.0-81.0); PLATELET COUNT (AUTO) 205 K/uL (150-450); RED BLOOD CELL COUNT(AUTO) 2.61 MIL/uL (4.0-5.2); WHITE BLOOD COUNT (AUTO) 28.5 K/uL (4.3-11.0)
[2023-04-14 02:03] LABS: ABG OXYGEN SATURATION 99.9 % (92.0-98.5); ABG PH 7.304 (7.350-7.450); ABG PO2 347.5 mmHg (75.0-100.0); ABG TOTAL HEMOGLOBIN 7.8 G/dL (12.0-16.0); AaDO2 331.5 mmHg; COHb 0.8 % (0.5-1.5); MetHb 0.2 % (0.0-1.5); O2Hb 98.9 % (94.0-97.0); PEEP,BG 0 cm H2O; SITE, ABG Right Radial; VT, ABG 575 mL
[2023-04-14 02:03] LABS: ALANINE AMINOTRANSFERASE 17 U/L (12-78); ALBUMIN 2.5 g/dL (3.4-5.0); ALKALINE PHOSPHATASE 166 U/L (46-116); ASPARTATE AMINOTRANSFERASE 31 U/L (15-37); BILIRUBIN,TOTAL 0.9 mg/dL (0.2-1.0); CALCIUM, SERUM 9.1 mg/dL (8.5-10.1); CARBON DIOXIDE 17 mmol/L (21-32); CHLORIDE 105 mmol/L (98-107); CREATININE 6.4 mg/dL (0.6-1.3); GLUCOSE 274 mg/dL (74-106); HEMOGLOBIN 6.9 g/dL (11.5-14.8); POTASSIUM 4.6 mmol/L (3.5-5.1); SODIUM SERUM 143 mmol/L (136-145); TOTAL PROTEIN, SERUM 6.5 g/dL (6.4-8.2); UREA NITROGEN, BLOOD 43 mg/dL (7-18)
[2023-04-14 02:05] LABS: LACTIC ACID 7.5 mmol/L (0.4-2.0)
[2023-04-14 02:23] LABS: ANISOCYTOSIS 1+; BAND % (MANUAL) 4 % (0.0-5.0); BASOPHILS % (MANUAL) 0 % (0.0-2.0); EOSINOPHILS % (MANUAL) 0 % (0-4); HYPOCHROMASIA 1+; LYMPHOCYTES % (MANUAL) 22 % (16-48); MONOCYTES % (MANUAL) 11 % (0-11.0); NEUTROPHILS % (MANUAL) 63 (42-76); PLATELET ESTIMATE ADEQUATE; STOMATOCYTES 1+
[2023-04-14 02:54] LABS: BASOPHILS # (AUTO) 0.5 K/uL (0.0-0.2); BASOPHILS % (AUTO) 2.2 % (0.0-2.0); EOSINOPHILS # (AUTO) 0.2 K/uL (0.0-0.7); EOSINOPHILS % (AUTO) 1.1 % (0.0-6.0); HEMATOCRIT 27 % (33-45); HEMOGLOBIN 7.9 g/dL (11.5-14.8); LYMPHOCYTES % (AUTO) 13.6 % (20.0-44.0); MEAN CORPUSCULAR HEMOGLOBIN 26 PG (26.0-33.0); MEAN CORPUSCULAR HGB CONC 29 g/dl (31.0-36.0); MEAN CORPUSCULAR VOLUME 90 fL (82-100); MONOCYTES # (AUTO) 1.7 K/uL (0.1-1.30); MONOCYTES % (AUTO) 7.4 % (2.0-12.0); NEUTROPHILS % (AUTO) 75.7 % (43.0-81.0); PLATELET COUNT (AUTO) 207 K/uL (150-450); RED CELL DISTRIBUTION WIDTH 18.1 % (11.5-15.0); WHITE BLOOD COUNT (AUTO) 22.4 K/uL (4.3-11.0)
[2023-04-14 03:07] LABS: BILIRUBIN,DIRECT 0.7 mg/dL (0.0-0.2)
[2023-04-14 03:12] LABS: CALCIUM, SERUM 9.3 mg/dL (8.5-10.1); CREATININE 6.5 mg/dL (0.6-1.3); MAGNESIUM 2.5 mg/dL (1.8-2.4); PHOSPHORUS 5.9 mg/dL (2.5-4.9)
[2023-04-14] MEDS: BLOOD SUGAR DIAGNOSTIC 1 EACH STRIP IN SCH ×3 (06:08→17:48)
[2023-04-14] MEDS: INSULIN REGULAR, HUMAN 100 UNIT/ML 3 ML VIAL SQ PRN ×3 (06:13→17:50)
[2023-04-14] MEDS: PANTOPRAZOLE 40 MG TABLET.DR PO SCH (07:30)
[2023-04-14] MEDS: SODIUM BICARBONATE 650 MG TABLET PO SCH ×2 (08:00→12:33)
[2023-04-14] MEDS ORDERED: EPINEPHRINE (1:10,000) SYRINGE 1 MG/10 ML DISP.SYRIN IVP ONE (08:40)
[2023-04-14] MEDS ORDERED: CALCIUM CHLORIDE 1,000 MG/10 ML DISP.SYRIN IV ONE (08:40)
[2023-04-14] MEDS: DILTIAZEM HCL CD 240 MG PO SCH (08:42)
[2023-04-14] MEDS: hydrALAZINE HCL 25 MG TABLET PO SCH ×2 (08:42→12:32)
[2023-04-14] MEDS: DOCUSATE SODIUM 100 MG CAPSULE PO SCH (08:43)
[2023-04-14] MEDS: VIT B CMPLX 3/FA/VIT C/BIOTIN 1 TAB TABLET PO SCH (08:43)
[2023-04-14] MEDS: ENSURE CLEAR 237 ML LIQUID (MIX BERRY) PO SCH (08:43)
[2023-04-14] MEDS: CARVEDILOL 12.5 MG TABLET PO SCH (08:43)
[2023-04-14] MEDS: ASCORBIC ACID 500 MG TABLET PO SCH (08:44)
[2023-04-14] MEDS: GABAPENTIN 100 MG CAPSULE PO SCH ×2 (08:44→12:32)
[2023-04-14] MEDS: MIDODRINE HCL (5MG) 5 MG TABLET PO SCH ×2 (08:44→12:33)
[2023-04-14] MEDS: CLOTRIMAZOLE 1% 15 GM TUBE TP SCH ×2 (08:44→16:10)
[2023-04-14] MEDS: ALLOPURINOL 100 MG TABLET PO SCH (08:44)
[2023-04-14] MEDS: FAMOTIDINE (20 MG) 20 MG TABLET PO SCH (08:44)
[2023-04-14] MEDS ORDERED: Z GUARD REMEDY 4 OZ OINT TP PRN (09:00)
[2023-04-14] MEDS: MEROPENEM 500 MG in IV NS 0.9% 50 ML IV SCH ×2 (09:05→21:36)
[2023-04-14] MEDS: MICAFUNGIN SODIUM 100 MG in IV NS 0.9% 100 ML IV SCH (12:43)
[2023-04-14] MEDS: ACETAMINOPHEN 325 MG TABLET PO PRN ×2 (14:16→20:32)
[2023-04-14] MEDS ORDERED: PHARMACY TO CHANGE PO MEDS TO GT/NG XX PRN (15:00)
[2023-04-14] MEDS ORDERED: PROPOFOL 100 ML IV PRN ×2 (16:00→16:30)
[2023-04-14] MEDS: hydrALAZINE HCL 25 MG TABLET GT SCH ×2 (16:08→21:00)
[2023-04-14] MEDS: CARVEDILOL 12.5 MG TABLET GT SCH (16:09)
[2023-04-14] MEDS: DOCUSATE SODIUM LIQ 100 MG/10 ML UDC GT SCH (16:09)
[2023-04-14] MEDS: DILTIAZEM HCL 30 MG TABLET GT SCH ×2 (16:09→21:00)
[2023-04-14] MEDS: GABAPENTIN 100 MG CAPSULE GT SCH (16:10)
[2023-04-14] MEDS: MIDODRINE HCL (5MG) 5 MG TABLET GT SCH (16:10)
[2023-04-14] MEDS: PROPOFOL 100 ML IV PRN ×2 (17:08→23:29)
[2023-04-14] MEDS: SODIUM BICARBONATE 650 MG TABLET GT SCH (17:47)
[2023-04-14] MEDS: ALBUMIN 25% 25 GM in PREMIX 1 EA IV PRN (19:13)
[2023-04-14] MEDS: VANCOMYCIN POST DIALYSIS 500MG IV PRN ×2 (20:02)
[2023-04-14] MEDS: ATORVASTATIN 40 MG TABLET GT SCH (21:41)
[2023-04-15] VITALS (84 sets, daily range): BP systolic 83–126; BP diastolic 59–78; TEMP 98.4–100.4; O2SAT 98–100
[2023-04-15] MEDS: BLOOD SUGAR DIAGNOSTIC 1 EACH STRIP IN SCH ×4 (00:54→17:50)
[2023-04-15] MEDS: INSULIN REGULAR, HUMAN 100 UNIT/ML 3 ML VIAL SQ PRN ×4 (00:54→18:42)
[2023-04-15] MEDS: IPRATROPIUM NEB FS 0.5 MG/2.5 ML AMPUL.NEB NEB SCH ×4 (01:24→19:27)
[2023-04-15 04:28] LABS: CALCIUM, SERUM 8.8 mg/dL (8.5-10.1); CREATININE 5.4 mg/dL (0.6-1.3); POTASSIUM 4.1 mmol/L (3.5-5.1)
[2023-04-15] MEDS: PROPOFOL 100 ML IV PRN (06:11)
[2023-04-15] MEDS: NOREPINEPHRINE 32 MG in IV NS 0.9% 218 ML IV PRN ×2 (07:44→19:19)
[2023-04-15] MEDS: SODIUM BICARBONATE 650 MG TABLET GT SCH ×3 (08:45→17:07)
[2023-04-15] MEDS: GABAPENTIN 100 MG CAPSULE GT SCH ×3 (08:45→17:07)
[2023-04-15] MEDS: VIT B CMPLX 3/FA/VIT C/BIOTIN 1 TAB TABLET GT SCH (08:46)
[2023-04-15] MEDS: MIDODRINE HCL (5MG) 5 MG TABLET GT SCH ×3 (08:46→17:09)
[2023-04-15] MEDS: hydrALAZINE HCL 25 MG TABLET GT SCH ×4 (08:47→21:09)
[2023-04-15] MEDS: DILTIAZEM HCL 30 MG TABLET GT SCH ×4 (08:47→21:09)
[2023-04-15] MEDS: ALLOPURINOL 100 MG TABLET GT SCH (08:47)
[2023-04-15] MEDS: DOCUSATE SODIUM LIQ 100 MG/10 ML UDC GT SCH ×2 (08:48→17:07)
[2023-04-15] MEDS: CARVEDILOL 12.5 MG TABLET GT SCH ×2 (08:48→17:07)
[2023-04-15] MEDS: ASCORBIC ACID 500 MG TABLET GT SCH (08:49)
[2023-04-15] MEDS: PANTOPRAZOLE 40 MG/PACK PACK GT SCH (08:53)
[2023-04-15] MEDS: MEROPENEM 500 MG in IV NS 0.9% 50 ML IV SCH ×2 (08:59→21:22)
[2023-04-15] MEDS: ENSURE CLEAR 237 ML LIQUID (MIX BERRY) PO SCH (09:00)
[2023-04-15] MEDS: CLOTRIMAZOLE 1% 15 GM TUBE TP SCH ×2 (09:06→17:10)
[2023-04-15 10:40] LABS: BASOPHILS # (AUTO) 0.2 K/uL (0.0-0.2); BASOPHILS % (AUTO) 0.7 % (0.0-2.0); EOSINOPHILS # (AUTO) 0.1 K/uL (0.0-0.7); EOSINOPHILS % (AUTO) 0.4 % (0.0-6.0); HEMATOCRIT 27 % (33-45); HEMOGLOBIN 8.1 g/dL (11.5-14.8); LYMPHOCYTES # (AUTO) 3.8 K/uL (0.8-4.8); LYMPHOCYTES % (AUTO) 16.6 % (20.0-44.0); MEAN CORPUSCULAR HEMOGLOBIN 27 PG (26.0-33.0); MEAN CORPUSCULAR HGB CONC 30 g/dl (31.0-36.0); MEAN CORPUSCULAR VOLUME 89 fL (82-100); MONOCYTES # (AUTO) 2.8 K/uL (0.1-1.30); MONOCYTES % (AUTO) 12.1 % (2.0-12.0); NEUTROPHILS # (AUTO) 16.3 K/uL (1.8-8.9); NEUTROPHILS % (AUTO) 70.2 % (43.0-81.0); PLATELET COUNT (AUTO) 208 K/uL (150-450); RED BLOOD CELL COUNT(AUTO) 3.01 MIL/uL (4.0-5.2); RED CELL DISTRIBUTION WIDTH 18.3 % (11.5-15.0); WHITE BLOOD COUNT (AUTO) 23.2 K/uL (4.3-11.0)
[2023-04-15] MEDS ORDERED: GLUCERNA 1.2 1,000 ML BOTTLE NG PRN (11:30)
[2023-04-15 12:06] LABS: ABG BASE EXCESS -6.2 mmol/L; ABG OXYGEN SATURATION 96.1 % (92.0-98.5); ABG PCO2 24.8 mmHg (35.0-45.0); ABG PH 7.447 (7.350-7.450); ABG PO2 85.9 mmHg (75.0-100.0); ABG TOTAL HEMOGLOBIN 9.3 G/dL (12.0-16.0); AaDO2 170.8 mmHg; COHb 0.3 % (0.5-1.5); MetHb 0.3 % (0.0-1.5); O2Hb 95.5 % (94.0-97.0); SITE, ABG Right Radial
[2023-04-15] MEDS: MICAFUNGIN SODIUM 100 MG in IV NS 0.9% 100 ML IV SCH (12:22)
[2023-04-15] MEDS: ATORVASTATIN 40 MG TABLET GT SCH (21:10)
[2023-04-16] VITALS (116 sets, daily range): BP systolic 56–128; BP diastolic 20–83; TEMP 98.5–102.4; O2SAT 95–100
[2023-04-16] MEDS: BLOOD SUGAR DIAGNOSTIC 1 EACH STRIP IN SCH ×4 (00:14→18:00)
[2023-04-16] MEDS: INSULIN REGULAR, HUMAN 100 UNIT/ML 3 ML VIAL SQ PRN ×2 (00:18→05:47)
[2023-04-16] MEDS: IPRATROPIUM NEB FS 0.5 MG/2.5 ML AMPUL.NEB NEB SCH ×4 (01:28→19:55)
[2023-04-16] MEDS: NOREPINEPHRINE 32 MG in IV NS 0.9% 218 ML IV PRN ×5 (04:54→22:07)
[2023-04-16] MEDS: ASCORBIC ACID 500 MG TABLET GT SCH (08:39)
[2023-04-16] MEDS: GABAPENTIN 100 MG CAPSULE GT SCH ×3 (08:39→17:00)
[2023-04-16] MEDS: PANTOPRAZOLE 40 MG/PACK PACK GT SCH (08:39)
[2023-04-16] MEDS: ALLOPURINOL 100 MG TABLET GT SCH (08:40)
[2023-04-16] MEDS: ACETAMINOPHEN 325 MG TABLET PO PRN (08:40)
[2023-04-16] MEDS: VIT B CMPLX 3/FA/VIT C/BIOTIN 1 TAB TABLET GT SCH (08:40)
[2023-04-16] MEDS: DOCUSATE SODIUM LIQ 100 MG/10 ML UDC GT SCH ×2 (08:40→17:00)
[2023-04-16] MEDS: SODIUM BICARBONATE 650 MG TABLET GT SCH ×3 (08:40→18:00)
[2023-04-16] MEDS: MEROPENEM 500 MG in IV NS 0.9% 50 ML IV SCH ×2 (08:58→21:00)
[2023-04-16] MEDS: DILTIAZEM HCL 30 MG TABLET GT SCH ×4 (09:00→21:00)
[2023-04-16] MEDS: hydrALAZINE HCL 25 MG TABLET GT SCH ×4 (09:00→21:00)
[2023-04-16] MEDS: CARVEDILOL 12.5 MG TABLET GT SCH ×2 (09:00→17:00)
[2023-04-16] MEDS: MIDODRINE HCL (5MG) 5 MG TABLET GT SCH ×3 (09:00→17:00)
[2023-04-16] MEDS: ENSURE CLEAR 237 ML LIQUID (MIX BERRY) PO SCH (09:00)
[2023-04-16] MEDS: CLOTRIMAZOLE 1% 15 GM TUBE TP SCH ×2 (09:46→19:30)
[2023-04-16] MEDS ORDERED: GLUCERNA 1.2 1,000 ML BOTTLE NG SCH (10:00)
[2023-04-16] MEDS: PHENYLEPHRINE 50 MG in IV NS 0.9% 245 ML IV PRN ×4 (10:54→22:11)
[2023-04-16 12:17] LABS: BILIRUBIN,TOTAL 2.3 mg/dL (0.2-1.0); CALCIUM, SERUM 8.6 mg/dL (8.5-10.1); CREATININE 7.1 mg/dL (0.6-1.3); MAGNESIUM 2.7 mg/dL (1.8-2.4); PHOSPHORUS 5.9 mg/dL (2.5-4.9); POTASSIUM 6.1 mmol/L (3.5-5.1); TOTAL PROTEIN, SERUM 6.7 g/dL (6.4-8.2)
[2023-04-16] MEDS ORDERED: ACETAMINOPHEN 650 MG/SUPP.RECT RC PRN (12:30)
[2023-04-16 12:42] LABS: PROTHROMBIN TIME 20.3 SECS (9.2-11.1)
[2023-04-16 12:54] LABS: D-DIMER 6.77 mg/L(FEU (0.17-0.50)
[2023-04-16 12:56] LABS: BASOPHILS # (AUTO) 0.1 K/uL (0.0-0.2); BASOPHILS % (AUTO) 0.5 % (0.0-2.0); EOSINOPHILS # (AUTO) 0.2 K/uL (0.0-0.7); EOSINOPHILS % (AUTO) 0.9 % (0.0-6.0); HEMATOCRIT 31 % (33-45); HEMOGLOBIN 8.7 g/dL (11.5-14.8); LYMPHOCYTES # (AUTO) 3.7 K/uL (0.8-4.8); MEAN CORPUSCULAR HEMOGLOBIN 27 PG (26.0-33.0); MEAN CORPUSCULAR HGB CONC 28 g/dl (31.0-36.0); MEAN CORPUSCULAR VOLUME 96 fL (82-100); MONOCYTES # (AUTO) 2.7 K/uL (0.1-1.30); MONOCYTES % (AUTO) 14.4 % (2.0-12.0); NEUTROPHILS # (AUTO) 11.9 K/uL (1.8-8.9); NEUTROPHILS % (AUTO) 64.2 % (43.0-81.0); PLATELET COUNT (AUTO) 158 K/uL (150-450); RED BLOOD CELL COUNT(AUTO) 3.24 MIL/uL (4.0-5.2); RED CELL DISTRIBUTION WIDTH 19.6 % (11.5-15.0); WHITE BLOOD COUNT (AUTO) 18.5 K/uL (4.3-11.0)
[2023-04-16] MEDS: ALBUMIN 25% 25 GM in PREMIX 1 EA IV PRN (13:28)
[2023-04-16] MEDS: MICAFUNGIN SODIUM 100 MG in IV NS 0.9% 100 ML IV SCH (13:49)
[2023-04-16] MEDS ORDERED: diphenhydrAMINE HCL 50 MG/ML VIAL IV ONE (16:00)
[2023-04-16] MEDS ORDERED: ACETAMINOPHEN 325 MG TABLET PO ONE (16:00)
[2023-04-16] MEDS: VASOPRESSIN INJ 40 UNIT in IV NS 0.9% 38 ML IV PRN (20:56)
[2023-04-16] MEDS: ATORVASTATIN 40 MG TABLET GT SCH (22:00)
[2023-04-17] VITALS (102 sets, daily range): BP systolic 30–126; BP diastolic 13–102; TEMP 97.9–99.6; O2SAT 78–100
[2023-04-17] MEDS: PHENYLEPHRINE 50 MG in IV NS 0.9% 245 ML IV PRN ×7 (00:01→13:46)
[2023-04-17] MEDS: INSULIN REGULAR, HUMAN 100 UNIT/ML 3 ML VIAL SQ PRN ×3 (01:00→23:20)
[2023-04-17] MEDS: NOREPINEPHRINE 32 MG in IV NS 0.9% 218 ML IV PRN ×6 (01:41→20:31)
[2023-04-17] MEDS: IPRATROPIUM NEB FS 0.5 MG/2.5 ML AMPUL.NEB NEB SCH ×4 (01:59→20:19)
[2023-04-17] MEDS: ACETAMINOPHEN 325 MG TABLET PO PRN (03:42)
[2023-04-17] MEDS: BLOOD SUGAR DIAGNOSTIC 1 EACH STRIP IN SCH ×5 (06:00→23:19)
[2023-04-17] MEDS: PANTOPRAZOLE 40 MG/PACK PACK GT SCH (07:30)
[2023-04-17] MEDS: SODIUM BICARBONATE 650 MG TABLET GT SCH ×3 (08:00→17:37)
[2023-04-17] MEDS: GABAPENTIN 100 MG CAPSULE GT SCH ×3 (08:15→16:44)
[2023-04-17] MEDS: VIT B CMPLX 3/FA/VIT C/BIOTIN 1 TAB TABLET GT SCH (08:15)
[2023-04-17] MEDS: CARVEDILOL 12.5 MG TABLET GT SCH ×2 (08:15→16:44)
[2023-04-17] MEDS: DILTIAZEM HCL 30 MG TABLET GT SCH ×4 (08:15→20:41)
[2023-04-17] MEDS: hydrALAZINE HCL 25 MG TABLET GT SCH ×4 (08:15→20:41)
[2023-04-17] MEDS: DOCUSATE SODIUM LIQ 100 MG/10 ML UDC GT SCH ×2 (08:15→16:44)
[2023-04-17] MEDS: ASCORBIC ACID 500 MG TABLET GT SCH (08:16)
[2023-04-17] MEDS: MIDODRINE HCL (5MG) 5 MG TABLET GT SCH ×3 (08:16→16:44)
[2023-04-17] MEDS: ENSURE CLEAR 237 ML LIQUID (MIX BERRY) PO SCH (08:16)
[2023-04-17] MEDS: ALLOPURINOL 100 MG TABLET GT SCH (08:16)
[2023-04-17] MEDS: MEROPENEM 500 MG in IV NS 0.9% 50 ML IV SCH ×2 (08:25→20:38)
[2023-04-17] MEDS: CLOTRIMAZOLE 1% 15 GM TUBE TP SCH ×2 (08:26→16:49)
[2023-04-17] MEDS: VASOPRESSIN INJ 40 UNIT in IV NS 0.9% 38 ML IV PRN (10:16)
[2023-04-17] MEDS: MICAFUNGIN SODIUM 100 MG in IV NS 0.9% 100 ML IV SCH (12:34)
[2023-04-17 15:26] LABS: BASOPHILS # (AUTO) 0.2 K/uL (0.0-0.2); BASOPHILS % (AUTO) 1.3 % (0.0-2.0); EOSINOPHILS # (AUTO) 1.6 K/uL (0.0-0.7); EOSINOPHILS % (AUTO) 10.1 % (0.0-6.0); HEMATOCRIT 27 % (33-45); LYMPHOCYTES # (AUTO) 3.2 K/uL (0.8-4.8); LYMPHOCYTES % (AUTO) 20.7 % (20.0-44.0); MEAN CORPUSCULAR HEMOGLOBIN 26 PG (26.0-33.0); MEAN CORPUSCULAR HGB CONC 26 g/dl (31.0-36.0); MEAN CORPUSCULAR VOLUME 103 fL (82-100); MONOCYTES % (AUTO) 6.5 % (2.0-12.0); NEUTROPHILS # (AUTO) 9.5 K/uL (1.8-8.9); NEUTROPHILS % (AUTO) 61.4 % (43.0-81.0); PLATELET COUNT (AUTO) 169 K/uL (150-450); RED CELL DISTRIBUTION WIDTH 21.9 % (11.5-15.0); WHITE BLOOD COUNT (AUTO) 15.5 K/uL (4.3-11.0)
[2023-04-17 15:27] LABS: CREATININE 5.8 mg/dL (0.6-1.3); HEMOGLOBIN 6.9 g/dL (11.5-14.8)
[2023-04-17] MEDS: PHENYLEPHRINE 100 MG in IV NS 0.9% 240 ML IV PRN ×3 (15:35→23:03)
[2023-04-17 15:39] LABS: INR 3.66 (0.91-1.10); PARTIAL THROMBOPLASTIN TIME 58.4 SEC (24.3-34.3); PROTHROMBIN TIME 35.6 SECS (9.2-11.1)
[2023-04-17 15:57] LABS: POTASSIUM 6.6 mmol/L (3.5-5.1)
[2023-04-17 16:00] LABS: D-DIMER 9.2 mg/L(FEU (0.17-0.50)
[2023-04-17] MEDS ORDERED: SODIUM BICARBONATE SYR 50 MEQ/50 ML DISP.SYRIN IV ONE ×2 (17:00→20:30)
[2023-04-17] MEDS ORDERED: INSULIN REGULAR, HUMAN 100 UNIT/ML 10 ML VIAL IV ONE (17:00)
[2023-04-17] MEDS ORDERED: DEXTROSE 50%-WATER 50 ML DISP.SYRIN IVP ONE (17:00)
[2023-04-17] MEDS ORDERED: Sodium Bicarbonate 150 MEQ in IV D5W 1,000 ML IV PRN (20:30)
[2023-04-17] MEDS ORDERED: SODIUM BICARBONATE SYR 50 MEQ/50 ML DISP.SYRIN ONE (21:24)
[2023-04-17] MEDS: ATORVASTATIN 40 MG TABLET GT SCH (21:59)
[2023-04-17 22:12] LABS: LYMPHOCYTES % (MANUAL) 25 % (16-48); MONOCYTES % (MANUAL) 14 % (0-11.0); NEUTROPHILS % (MANUAL) 61 (42-76); PLATELET ESTIMATE ADEQUATE
[2023-04-17] MEDS ORDERED: MORPHINE SULFATE INJ 2 MG/ML DISP.SYRIN IV PRN (23:30)
[2023-04-17] MEDS ORDERED: LORAZEPAM INJ 2 MG/ML VIAL IV PRN (23:30)
[2023-04-18] VITALS: BP 35/22; TEMP 98; O2SAT 76
== END 2023-04-18 01:51 ==
LOC: ER 13:05 → TELE1 18:39 → MEDSG1 04-04 11:04 → ICU 04-10 10:58 → TELE1 04-11 15:56 → ICU 04-14 01:17
PROVIDERS: ADMIT Internal Medicine; ATTEND Nurse Practitioner Acute Care
PROC: 02HV33Z Insertion of Infusion Device into Superior Vena Cava, Percutaneous Approach (ICD-10-PCS; principal; 2023-03-29)
PROC: B548ZZA Ultrasonography of Superior Vena Cava, Guidance (ICD-10-PCS; 2023-03-29)
PROC: 05HY33Z Insertion of Infusion Device into Upper Vein, Percutaneous Approach (ICD-10-PCS; 2023-03-29)
PROC: 0W9G3ZX Drainage of Peritoneal Cavity, Percutaneous Approach, Diagnostic (ICD-10-PCS; 2023-03-30)
PROC: 5A1D70Z Performance of Urinary Filtration, Intermittent, Less than 6 Hours Per Day (ICD-10-PCS; 2023-03-30)
PROC: 0JH63XZ Insertion of Tunneled Vascular Access Device into Chest Subcutaneous Tissue and Fascia, Percutaneous Approach (ICD-10-PCS; 2023-04-07)
PROC: 05HM33Z Insertion of Infusion Device into Right Internal Jugular Vein, Percutaneous Approach (ICD-10-PCS; 2023-04-07)
PROC: B513YZA Fluoroscopy of Right Jugular Veins using Other Contrast, Guidance (ICD-10-PCS; 2023-04-07)
PROC: 5A1945Z Respiratory Ventilation, 24-96 Consecutive Hours (ICD-10-PCS; 2023-04-14)
PROC: 0BH17EZ Insertion of Endotracheal Airway into Trachea, Via Natural or Artificial Opening (ICD-10-PCS; 2023-04-14)
PROC: 5A12012 Performance of Cardiac Output, Single, Manual (ICD-10-PCS; 2023-04-14)
DX: K80.00 Calculus of gallbladder with acute cholecystitis without obstruction (principal); J96.01 Acute respiratory failure with hypoxia; K76.7 Hepatorenal syndrome; J69.0 Pneumonitis due to inhalation of food and vomit; A41.9 Sepsis, unspecified organism; N17.0 Acute kidney failure with tubular necrosis; R65.21 Severe sepsis with septic shock; B37.7 Candidal sepsis; G92.8 Other toxic encephalopathy; D63.8 Anemia in other chronic diseases classified elsewhere; R18.0 Malignant ascites; G93.1 Anoxic brain damage, not elsewhere classified; I13.2 Hypertensive heart and chronic kidney disease with heart failure and with stage 5 chronic kidney disease, or end stage renal disease; E87.1 Hypo-osmolality and hyponatremia; K75.81 Nonalcoholic steatohepatitis (NASH); N39.0 Urinary tract infection, site not specified; K21.9 Gastro-esophageal reflux disease without esophagitis; J98.11 Atelectasis; E11.42 Type 2 diabetes mellitus with diabetic polyneuropathy; E11.22 Type 2 diabetes mellitus with diabetic chronic kidney disease; E66.01 Morbid (severe) obesity due to excess calories; E87.5 Hyperkalemia; I89.0 Lymphedema, not elsewhere classified; J45.909 Unspecified asthma, uncomplicated; Z79.4 Long term (current) use of insulin; Z79.01 Long term (current) use of anticoagulants; Z88.0 Allergy status to penicillin; Z98.61 Coronary angioplasty status; I48.91 Unspecified atrial fibrillation; B96.20 Unspecified Escherichia coli [E. coli] as the cause of diseases classified elsewhere; Z68.43 Body mass index [BMI] 50.0-59.9, adult; E86.1 Hypovolemia; I87.2 Venous insufficiency (chronic) (peripheral); D50.9 Iron deficiency anemia, unspecified; K57.30 Diverticulosis of large intestine without perforation or abscess without bleeding; J90 Pleural effusion, not elsewhere classified; I46.9 Cardiac arrest, cause unspecified; I47.20 Ventricular tachycardia, unspecified; K74.60 Unspecified cirrhosis of liver; M89.8X9 Other specified disorders of bone, unspecified site; Z88.6 Allergy status to analgesic agent; Z66 Do not resuscitate; N20.0 Calculus of kidney; I50.9 Heart failure, unspecified; C57.7 Malignant neoplasm of other specified female genital organs; Z79.899 Other long term (current) drug therapy; N18.6 End stage renal disease; E83.41 Hypermagnesemia
CPT/HCPCS: 31720; 36410; 36415; 36600; 49083; 71045-TC; 73620-TC; 74018; 76705-TC; 76856-TC; 80048-TC; 80053-TC; 80076-TC; 80202-TC; 81001; 82248-TC; 82378; 82550-TC; 82570-TC; 82607-TC; 82728-TC; 82803-TC; 82962-TC; 83540-TC; 83605-TC; 83690-TC; 83735-TC; 83970; 84100-TC; 84155; 84165; 84300-TC; 84443-TC; 84478-TC; 84484-TC; 85025-TC; 85396; 85610-TC; 85652-TC; 85730-TC; 86225; 86235; 86300; 86301; 86304; 86706; 86803; 86850-TC; 87040-TC; 87086-TC; 87340; 88108-TC; 88305-TC; 88312-TC; 88341; 88342; 88360; 89051-TC; 90935-TC; 92526; 92611-TC; 92950-TC; 94002-TC; 94003-TC; 94640-TC; 94799-TC; 99082-TC; A4216; A4223; A6253; A6403; C1750; G0378; J0171; J0360; J0692; J0696; J1644; J1815; J2060; J2185; J2248; J2270; J2405; J2704; J2765; J2916; J3010; J3370; J3490; J7030; J7040; J7042; J7050; J7060; J7070; J7120; P9047; Q9967